=== PATIENT | female | born 1950 | race Caucasian/White ===

== ENCOUNTER 2024-03-07 12:46 | Inpatient (IN) | payer MEDICARE, SELFPAY ==
[2024-03-07] VITALS (17 sets, daily range): BP systolic 162–221; BP diastolic 56–88; PULSE 84–100; RESP 12–20; TEMP 36.3–36.8; O2SAT 92–97; BMI 35.2
--- NOTE | ~2024-03-07 | US_ITS ---
US abdomen limited INDICATION: PROCEDURE: Realtime right upper abdominal ultrasound. COMPARISON: No prior studies for comparison. FINDINGS: The pancreas is normal without focal mass or pancreatic ductal dilation. Liver echotexture is normal without focal mass or intrahepatic biliary dilatation. There is normal directional flow i n the portal vein. The gallbladder is normal without stones, gallbladder wall thickening or pericholecystic fluid. Comm on bile duct measures 4 mm. No sonographic Shaw's sign. IMPRESSION: 1: Normal limited abdominal ultrasound. Reviewed, dictated and finalized at location B.
--- NOTE | ~2024-03-07 | CT_ITS ---
EXAMINATION: CT brain wo con DATE: 03/07/2024 14:20 INDICATION: Syncope. Seizure. TECHNIQUE: Computed tomography (CT) of the head was performed without intravenous contrast. The mA wa s adjusted according to patient size. Iterative reconstruction technique was employed. The dose-lengt h product was 605.33 mGy-cm. COMPARISON: None FINDINGS: There are scattered areas of low attenuation in the cerebral white matter. There is no intr acranial hemorrhage, acute infarction, or abnormal intracranial mass lesion. The ventricles are john l in size. There is mild mucosal thickening in the paranasal sinuses. The mastoid air cells are john l. IMPRESSION: 1. Moderate nonspecific cerebral white matter disease, which likely represents chronic small vessel i schemic disease. Reviewed, dictated and finalized at location E. IMPRESSION: 1. Moderate nonspecific cerebral white matter disease, which likely represents chronic small vessel ischemic disease.
--- NOTE | ~2024-03-07 | XR_ITS ---
EXAMINATION: XR chest 2V 03/07/2024 13:30 INDICATION: Syncope PROCEDURE: 2 view chest COMPARISON: No prior studies for comparison. FINDINGS: The lungs are clear. The cardiomediastinal silhouette is within normal limits. There are no pleural effusions. There is no pneumothorax suspected. IMPRESSION: 1: NO ACUTE CARDIOPULMONARY DISEASE. Reviewed, dictated and finalized at location A.
--- NOTE | ~2024-03-07 | CT_ITS ---
EXAMINATION: CTA chest PE abdomen pel DATE: 03/07/2024 14:20 INDICATION: Shortness of breath. Elevated lipase. TECHNIQUE: Computed tomography angiography (CTA) of the chest was performed with 100 mL Omnipaque-350 intravenous contrast timed to evaluate the pulmonary arteries. Coronal maximum intensity projection 3D-reconstructions were created by the technologist. Computed tomography (CT) of the abdomen and pelv is was performed with intravenous contrast. Automated exposure control and iterative reconstruction t echnique were employed. The dose-length product was 1939.51 mGy-cm. COMPARISON: None. FINDINGS: CTA chest: The lungs demonstrate mild atelectasis. There is smooth septal thickening in the lungs, co nsistent with mild pulmonary edema. There is mild emphysema. No pleural effusion. The heart size is n ormal. There are coronary artery calcifications. No pericardial effusion. There is no pulmonary embol us. There is mild thoracic spondylosis. CT abdomen and pelvis: The liver demonstrates a nodular surface contour, consistent with cirrhosis. T here is a 7 mm cyst in the liver. 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 The spl een is normal in size. There is fat stranding around the pancreas, consistent with acute interstitial pancreatitis. The adrenal glands and kidneys are normal. There is diverticulosis of the colon withou t evidence of diverticulitis. The appendix is not visualized. There are no dilated loops of bowel. Th ere is calcified atherosclerosis of the aorta and many of the other arteries. There are no pathologic ally enlarged lymph nodes. There is no free intraperitoneal fluid. There is mild lumbar spondylosis. IMPRESSION: 1. No pulmonary embolus. Sensitivity is mildly decreased by motion artifact. 2. Mild pulmonary edema. 3. Cirrhosis of the liver with portal venous hypertension. 4. Mild findings of acute interstitial pancreatitis. Reviewed, dictated and finalized at location E.
--- NOTE | 2024-03-07 12:55 | ECG_ITS ---
SEE SCANNED COPY FOR CONFIRMED REPORT MTDD
[2024-03-07 13:07] LABS: Basophils Absolute Auto 0.1 K/mm3 (0.0-0.1); Basophils Percent Auto 0.8 % (0.2-1.2); Eosinophils Absolute Auto 0.3 K/mm3 (0-0.3); Eosinophils Percent Auto 3.9 % (0-4.4); Hematocrit 37.8 % (37.0-47.0); Hemoglobin 12.6 g/dL (12.0-15.0); Immature Granulocyte Absolute 0.03 K/mm3 (0.00-0.031); Immature Granulocyte Percent A 0.4 % (0-0.5); Lymphocytes Absolute Auto 3.06 K/mm3 (0.9-3.2); Lymphocytes Percent Auto 38.6 % (18.3-44.2); Mean Corpuscular HGB Conc 33.3 g/dl (32-36); Mean Corpuscular Hemoglobin 33.2 pg (26-34); Mean Corpuscular Volume 99.7 fl (80-100); Mean Platelet Volume 10.5 fl (7.4-10.4); Monocytes Absolute Auto 1.1 K/mm3 (0.1-0.6); Monocytes Percent Auto 13.5 % (2.6-8.5); Neutrophils Absolute Auto 3.4 K/mm3 (1.3-6.7); Neutrophils Percent Auto 42.8 % (45.5-73.1); Platelet Count Result 173 k/mm3 (150-375); Red Blood Count 3.79 M/mm3 (4.2-5.4); Red Cell Distribution Width 12.6 % (11.5-14.5); White Blood Count 7.9 K/mm3 (4.5-10.0)
[2024-03-07 13:16] LABS: Alanine Aminotransferase 20 U/L (6-35); Albumin Level 4.1 g/dL (3.5-5.1); Alkaline Phosphatase 66 U/L (38-126); Anion Gap 9 mmol/L (4-12); Aspartate Amino Transferase 42 U/L (14-36); Bilirubin,Total 0.9 mg/dL (0.2-1.3); Blood Urea Nitrogen 10 mg/dL (7-17); Calcium 9.3 mg/dL (8.4-10.2); Carbon Dioxide 23 mmol/L (22-30); Chloride 108 mmol/L (98-107); Estimated CRCL calculation 54 ml/min; Estimated Glomerular Filt Rate > 60; Glucose 129 mg/dL (65-110); Lipase 744 U/L (23-300); Potassium 3.7 mmol/L (3.4-5.0); Sodium 140 mmol/L (137-145)
[2024-03-07 13:22] LABS: INR 1.1; Prothrombin Time 14.9 Seconds (11.1-14.7)
[2024-03-07 13:23] LABS: Partial Thromboplastin Time 29.3 Seconds (22.3-36.8)
--- NOTE | 2024-03-07 13:45 | ECG_ITS ---
SEE SCANNED COPY FOR CONFIRMED REPORT MTDD
--- NOTE | 2024-03-07 14:47 | ED.GENADULT ---
HPI - General Adult General Chief complaint: Syncope Stated complaint: syncopal episode Time Seen by Provider: 03/07/24 12:58 History of Present Illness HPI narrative: Erlinda Toth is a 73 y/o female with PMHx of DM who presents today via EMS from home after a syncope episode. Witnessed by family pt was sitting on the couch listening to her daughter in law and she suddenly had eyes rolled back / clenched fists / mild shaking of upper extremities and was out for about 30 seconds. She then came to and slowly became oriented X 4 again. Patient arrives here- states she feels a little foggy in the head, but denies having any chest pain/ SOB/ fever/chills/ She states otherwise she has been feeling well but has been taking OTC ced seltzer that she states is for her allergies that have been acting up. Related Data Allergies Allergy/AdvReac Type Severity Reaction Status Date / Time No Known Allergies Allergy Verified 03/07/24 19:50 Review of Systems Review of Systems: CONSTITUTIONAL: Denies fever, chills, or sweats. EYES: Denies visual changes, redness, or discharge. ENT: Reports some seasonal allergy symptoms CARDIOVASCULAR: Denies chest pain, palpitations, or edema. RESPIRATORY: Denies cough or dyspnea. GASTROINTESTINAL: Denies abdominal pain, nausea, vomiting, or diarrhea. GENITOURINARY: Denies dysuria or hematuria. SKIN: Denies rash or itching. MUSCULOSKELETAL: Denies back pain, joint pain, or myalgia. NEUROLOGIC: Denies headache, numbness, dizziness, or weakness. PSYCHIATRIC: Denies anxiety or depression. Exam Narrative: GENERAL: Well-appearing, well-nourished, and in no acute distress. HEAD: Normocephalic, atraumatic. EYES: PERRLA and EOMI. ENT: Nares clear, no rhinorrhea or epistaxis. Mucous membranes moist. Oropharynx without tonsillar hypertrophy exudate or other lesions. Bilateral TMs pearly blank nonbulging NECK: Supple. No adenopathy or masses. No carotid bruits or JVD CHEST: Clear to auscultation. No respiratory distress. No wheezes rales or rhonchi HEART: Regular rate and rhythm. No murmur heard. Normal peripheral pulses. ABDOMEN: Soft, nontender, nondistended, normal active bowel sounds. EXTREMITIES: Normal range of motion. No edema. SKIN: Warm, dry, no rash. NEURO: No focal deficits. Alert and oriented x3. PSYCH: Normal mood and affect. Course Vital Signs Vital signs: Vital Signs Pulse Rate 100 03/07/24 12:55 Respiratory Rate 18 03/07/24 12:55 Blood Pressure 221/81 H 03/07/24 12:55 Pulse Oximetry 93 03/07/24 12:55 Temperature 36.6 C 03/07/24 18:17 Pulse Rate 84 03/07/24 19:29 Respiratory Rate 17 03/07/24 19:29 Blood Pressure 193/81 H 03/07/24 19:29 Pulse Oximetry 97 03/07/24 19:29 Oxygen Delivery Room Air 03/07/24 13:04 Medical Decision Making MDM Narrative Medical decision making narrative: 73 y/o female who presents today for syncope witnessed by family and was out for about 30 seconds. On exam pt is alert and oriented X 4 no focal weakness/ paraesthesia noted on exam Denies chest pain/ SOB/ abdominal pain/ headache/ SOB/ Reports she has been eating and drinking well/ no nausea/vomiting / no recent illness fever/chills Concern for: Pulmonary embolism/ TIA/ Seizure/ Cardiac Ischemia/ Cardiac arrhythmia Plan to check Cardiac labs/ EKG/ Trop/ CT brain/ CT PE protocol and CT abdomen pelvis with her elevated Lipase CBC - Hemodynamically stable - no Leukocytosis CMP - Glucose 129- known DM / AST - 42 Lipase- 744 Trop 1 - 2.22 EKG 1 1252- Sinus rhythm Moderate ST Depression Lead II, Avf EKG 2 1352- Sinus rhythm minimal ST depression lead II, aVF also noted to have flattening T waves in V2, V3 Trop 2 -2.47 EKG 3 - sinus rhythm Pro BNP - 310 Called and talked with Cardiology Dr. Huertas who will consult and at this time not as concerned for ACS in the setting of the syncope Discussed admission with Hospitalist Katy who accepts admission
--- NOTE | 2024-03-07 15:46 | ECG_ITS ---
SEE SCANNED COPY FOR CONFIRMED REPORT MTDD
[2024-03-07 16:09] LABS: NT Pro B Type Natriuretic Pept 310 pg/mL (19.9-100)
[2024-03-07 16:50] LABS: Ethanol < 10 mg/dL (<10)
--- NOTE | 2024-03-07 19:03 | PM.CNCAR ---
Assessment and Plan Assessment and plan (1) Syncope: Code(s): R55 - Syncope and collapse Status: Acute Assessment and Plan: Differential includes ventricular arrhythmias, heart block, orthostatic, stroke, seizures, other. Monitor on telemetry. Obtain echo in AM. (2) Elevated troponin: Code(s): R79.89 - Other specified abnormal findings of blood chemistry Status: Acute Assessment and Plan: No symptoms to suggest ACS. Other possible causes include differential for #1, and pancreatitis. Troponin 2.2, then 2.4. Serial troponin to peak. (3) Diabetes: Code(s): E11.9 - Type 2 diabetes mellitus without complications Status: Acute Assessment and Plan: Managed by hospitalist. (4) Pancreatitis: Code(s): K85.90 - Acute pancreatitis without necrosis or infection, unspecified Status: Acute Assessment and Plan: Managed by hospitalist. History of Present Illness History of Present Illness Consult date/time: 03/07/24 19:03 Reason For Visit: Syncope Narrative: 73 yr old woman presents to ER with syncopal episode. She has a history of DM, remote smoking and family history of CAD with her father with CABG. Reports she was sitting on couch talking to her [id number] when suddenly her eyes rolled back, she had clenched fists and arms shaking, and was out for 35 seconds. She regained consciousness and was confused for a minute. Normally she can walk several blocks without any problems. She has rare palpitations especially with caffeine intake. Denies chest pain, sob, orthopnea, PND, edema, dizziness. Review of Systems Review of Systems: All systems reviewed & are unremarkable except as noted in HPI and below Constitutional: Constitutional: Reports as per HPI, Denies chills and Denies fever(s) Cardiovascular: Cardiovascular: Reports as per HPI, Denies chest pain, Reports irregular heart rhythm and Denies leg edema Respiratory: Respiratory: Reports as per HPI and Denies dyspnea Gastrointestinal: Gastrointestinal: Reports as per HPI and Denies abdominal pain Genitourinary: Genitourinary: Reports as per HPI and Denies dysuria Musculoskeletal: Musculoskeletal: Reports as per HPI and Reports back pain Neurologic: Reports as per HPI, Denies dizziness and Reports syncope Meds Home Medications and Allergies Allergies Allergy/AdvReac Type Severity Reaction Status Date / Time No Known Allergies Allergy Unverified 10/26/16 20:23 Vital Signs Vital Signs - 24 hr 03/07/24 13:04 03/07/24 12:55 03/07/24 13:42 Temperature 98.3 F Pulse Rate 92 100 100 Respiratory Rate 16 18 20 Blood Pressure 202/82 H 221/81 H 174/82 H Pulse Oximetry 92 93 96 Oxygen Delivery Room Air 03/07/24 13:45 03/07/24 14:00 03/07/24 14:30 Temperature 98.0 F Pulse Rate 99 96 97 Respiratory Rate 18 15 16 Blood Pressure 187/83 H 192/88 H 186/87 H Pulse Oximetry 96 94 Oxygen Delivery 03/07/24 15:00 03/07/24 16:00 03/07/24 17:00 Temperature 97.9 F 97.9 F 97.8 F Pulse Rate 94 89 90 Respiratory Rate 12 16 15 Blood Pressure 196/84 H 188/87 H 195/85 H Pulse Oximetry 96 94 Oxygen Delivery 03/07/24 17:31 03/07/24 18:17 Temperature 97.8 F Pulse Rate 91 85 Respiratory Rate 17 16 Blood Pressure 187/87 H 194/86 H Pulse Oximetry 95 Oxygen Delivery Exam Const: General: cooperative, healthy appearing and comfortable Resp: Auscultation: clear to auscultation bilaterally, no crackles, no rales, no rhonchi and no wheezes Cardio: Rate: regular rate Rhythm: regular rhythm Heart sounds: no murmurs Peripheral pulses: dorsalis pedis present GI: GI Palp: No abdominal tenderness and Yes Soft to palpation Neuro: General: oriented to person, oriented to place and oriented to time Extrem: Right lower extremity: no edema Left lower extremity: no edema Results Labs and Meds 03/07/24 12:59 03/07/24 12:59 Lab results: Ca
--- NOTE | 2024-03-07 19:35 | ADMGEN ---
This patient, Erlinda Toth, was admitted to IMU Room 203-01. Patient/family oriented to hospital policies and general routines including ID bracelet, bed and alarms, visiting hours, pain management, procedures, bathroom and other care routines, personal items, smoking policy, room service/diet, and visiting hours. Information on how to activate the Rapid Response Team has been discussed. Patient/Family are encouraged to report perceived risks to care and to ask questions if they do not understand what they are told or what they should do.
--- NOTE | 2024-03-07 20:19 | PM.IMHP ---
H&P: HPI History of Present Illness Date/Time: 03/07/24 20:19 Chief Complaint: SYNCOPE Narrative: THIS IS A 73-YEAR-OLD FEMALE WITH PAST MEDICAL HISTORY SIGNIFICANT FOR TYPE DIABETES MELLITUS, PATIENT WAS BROUGHT TO THE EMERGENCY ROOM AFTER HAVING SYNCOPAL EPISODE AT HOME PATIENT STATES THAT SHE HAD NO PRODROMES, DENIES ANY LIGHTHEADEDNESS, VISION CHANGES, HEADACHES, PALPITATIONS, CHEST PAIN, SHORTNESS OF BREATH, NO INCONTINENCE OF URINE OR STOOL. PATIENT HAS BEEN IN HER USUAL STATE OF HEALTH PRIOR TO THIS PRELIMINARY WORKUP HAS BEEN ESSENTIALLY SIGNIFICANT FOR ELEVATED TROPONIN. PATIENT HAS BEEN PLACE IN OBSERVATION FOR FURTHER EVALUATION MANAGEMENT EXAMINATION: XR chest 2V 03/07/2024 13:30 INDICATION: Syncope PROCEDURE:? 2 view chest COMPARISON: No prior studies for comparison. FINDINGS: The lungs are clear.? The cardiomediastinal silhouette is within normal limits.? There are no pleural effusions.? There is no pneumothorax suspected.? IMPRESSION: 1:? NO ACUTE CARDIOPULMONARY DISEASE. EXAMINATION: CT brain wo con DATE: 03/07/2024 14:20 INDICATION: Syncope. Seizure. TECHNIQUE: Computed tomography (CT) of the head was performed without intravenous contrast. The mA was adjusted according to patient size. Iterative reconstruction technique was employed. The dose-length product was 605.33 mGy-cm. COMPARISON: None FINDINGS: There are scattered areas of low attenuation in the cerebral white matter. There is no intracranial hemorrhage, acute infarction, or abnormal intracranial mass lesion. The ventricles are normal in size. There is mild mucosal thickening in the paranasal sinuses. The mastoid air cells are normal. IMPRESSION: 1. Moderate nonspecific cerebral white matter disease, which likely represents chronic small vessel ischemic disease. EXAMINATION: CTA chest PE abdomen pel DATE: 03/07/2024 14:20 INDICATION: Shortness of breath. Elevated lipase. TECHNIQUE: Computed tomography angiography (CTA) of the chest was performed with 100 mL Omnipaque-350 intravenous contrast timed to evaluate the pulmonary arteries. Coronal maximum intensity projection 3D-reconstructions were created by the technologist. Computed tomography (CT) of the abdomen and pelvis was performed with intravenous contrast. Automated exposure control and iterative reconstruction technique were employed. The dose-length product was 1939.51 mGy-cm. COMPARISON: None. FINDINGS: CTA chest: The lungs demonstrate mild atelectasis. There is smooth septal thickening in the lungs, consistent with mild pulmonary edema. There is mild emphysema. No pleural effusion. The heart size is normal. There are coronary artery calcifications. No pericardial effusion. There is no pulmonary embolus. There is mild thoracic spondylosis. CT abdomen and pelvis: The liver demonstrates a nodular surface contour, consistent with cirrhosis. There is a 7 mm cyst in the liver. 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 The spleen is normal in size. There is fat stranding around the pancreas, consistent with acute interstitial pancreatitis. The adrenal glands and kidneys are normal. There is diverticulosis of the colon without evidence of diverticulitis. The appendix is not visualized. There are no dilated loops of bowel. There is calcified atherosclerosis of the aorta and many of the other arteries. There are no pathologically enlarged lymph nodes. There is no free intraperitoneal fluid. There is mild lumbar spondylosis. IMPRESSION: 1. No pulmonary embolus. Sensitivity is mildly decreased by motion artifact. 2. Mild pulmonary edema. 3. Cirrhosis of the liver with portal venous hypertension. 4. Mild findings of acute interstitial pancreatitis. Review of Systems Review of Systems: SYNCOPAL EPISODE Constitutional: Constitutional: Denies body ache(s), Denies chills, Denies fatigue, Denies fever(s), Denies frequent falls, Denies malaise and Denies weakness
--- NOTE | 2024-03-07 21:57 | PC.NURSE ---
Dr. Ascencio notified of patient's elevated blood pressures and recent troponin level. MD responded with new order for hydralazine 10mg IV Push.
[2024-03-07] MEDS: hydrALAZINE HCL 20 MG/ML VIAL 10 MG IV PUSH (22:17)
[2024-03-08] VITALS (13 sets, daily range): BP systolic 150–184; BP diastolic 45–68; PULSE 72–95; RESP 15–20; TEMP 36.4–37.4; O2SAT 93–95
--- NOTE | 2024-03-08 | ECHO_ITS ---
Patient Info Name: Erlinda Toth Age: 73 years : 1950 Gender: Female Ht: 60 in Wt: 188 lbs BSA: 1.94 m2 HR: 87 bpm BP: 150 / 56 mmHg Technical Quality: Fair Exam Date: 03/08/2024 7:59 AM Exam Location: Echo Lab Patient Status: Inpatient Admit Date: 03/07/2024 Staff Ordering Physician: Ravi Huertas DO Child Life Assistant: Damián Tate RDCS Attending Provider: Uzair Mclaughlin MD Referring Physician: Aleksandar FREITAS; Exam Type: CA echo doppler color flow Study Info Indications R55 - Syncope and collapse - Elevated Trops Complete two-dimensional, color flow and Doppler transthoracic echocardiogram is performed. Summary 1. Complete two-dimensional, color flow and Doppler transthoracic echocardiogram is performed. 2. Left ventricular chamber dimension is normal. 3. Ventricular septum is sigmoid shaped measured at 1.3 cm. No resting LVOT obstruction. 4. Mid to apical anterior wall is hypokinetic. 5. There is mild concentric increased left ventricular wall thickness. 6. Left ventricular systolic function is hyperdynamic, estimated at >70%. 7. The left ventricular diastolic function is grade I diastolic dysfunction. 8. E/e' 11 is mildly elevated. 9. Left atrial chamber dimension is mildly enlarged. 10. There is mild aortic valve sclerosis. 11. There is trace tricuspid valve regurgitation. 12. No pulmonary hypertension, estimated pulmonary arterial systolic pressure is 30 mmHg. Left Ventricle Mid to apical anterior wall is hypokinetic. Ventricular septum is sigmoid shaped measured at 1.3 cm. No resting LVOT obstruction. Left ventricular chamber dimension is normal. Left ventricular systolic function is hyperdynamic, estimated at >70%. There is mild concentric increased left ventricular wall thickness. The left ventricular diastolic function is grade I diastolic dysfunction. E/e' 11 is mildly elevated. Right Ventricle Right ventricular systolic function is normal and with normal TAPSE 2.1 cm. Right ventricular chamber dimension is normal. Left Atria Left atrial chamber dimension is mildly enlarged. Right Atria Right atrial chamber dimension is normal. Aortic Valve The aortic valve is trileaflet. There is mild aortic valve sclerosis. There is no aortic valve stenosis. There is no aortic valve regurgitation. Pulmonic Valve There is no pulmonic regurgitation. Mitral Valve There is no mitral valve stenosis. There is no mitral valve regurgitation. Tricuspid Valve There is trace tricuspid valve regurgitation. No pulmonary hypertension, estimated pulmonary arterial systolic pressure is 30 mmHg. Pericardium/Pleural There is no pericardial effusion. Inferior Vena Cava Normal inferior vena cava with >50% collapse upon inspiration consistent with normal right atrial pressure, 5 mmHg. Aorta The aortic root size at the sinus of Valsalva is normal. Left Ventricular Outflow Tract Name Value Normal LVOT 2D LVOT Diameter 1.9 cm LVOT Doppler LVOT Peak Gradient 6 mmHg LVOT Mean Gradient 3 mmHg LVOT VTI 23 cm LVOT VTI/AV VTI Ratio 0.8 LVOT Stroke Volume
--- NOTE | 2024-03-08 06:26 | ECG_ITS ---
SEE SCANNED COPY FOR CONFIRMED REPORT MTDD
[2024-03-08 07:06] LABS: Cholesterol 149 mg/dL (0-200); HDL Direct 44 mg/dL; Triglycerides 110 mg/dL (<150)
[2024-03-08 07:17] LABS: LDL Cholesterol Direct 89 mg/dL
--- NOTE | 2024-03-08 07:34 | PM.PNCARD ---
Progress Note: A&P Assessment and Plan (1) Syncope: Qualifiers: Syncope type: unspecified Qualified Code(s): R55 - Syncope and collapse Code(s): R55 - Syncope and collapse Status: Acute Assessment and Plan: Differential includes ventricular arrhythmias, heart block, orthostatic, ACS, stroke, seizures, other. Monitor on telemetry. Obtain echo today. In light of rising troponin in a diabetic with possibly atypical symptom for CAD of syncope, discuss LHC and she is interested. Risks/benefits/alternative to LHC discussed and she is agreeable. Will consult [facility] [place] for it. Keep NPO. Start aspirin, Metoprolol, Losartan. If has CAD will start statin given cirrhosis of liver. (2) Elevated troponin: Code(s): R79.89 - Other specified abnormal findings of blood chemistry Status: Acute Assessment and Plan: No typical symptoms for ACS, but syncope in a diabetic. Other possible causes include differential for #1, and pancreatitis. Troponin 2.2, then 2.4, then 2.9. Serial troponin to peak. 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 (4) Pancreatitis: Qualifiers: Acute pancreatitis complication: unspecified Chronicity: acute Pancreatitis type: unspecified pancreatitis type Qualified Code(s): K85.90 - Acute pancreatitis without necrosis or infection, unspecified Code(s): K85.90 - Acute pancreatitis without necrosis or infection, unspecified Status: Acute Assessment and Plan: Mild and asymptomatic. Managed by hospitalist. (5) Hypertension: Code(s): I10 - Essential (primary) hypertension Status: Acute Assessment and Plan: High. Start Metoprolol and Losartan. Subjective Date/time seen: 03/08/24 07:34 Interval history: No chest pain or sob. Exam Const: General: cooperative, healthy appearing and comfortable Orientation/consciousness: oriented to person, oriented to place and oriented to time Resp: Auscultation: clear to auscultation bilaterally, no crackles, no rales, no rhonchi and no wheezes Cardio: Rate: regular rate Rhythm: regular rhythm Heart sounds: no murmurs Peripheral pulses: dorsalis pedis present Neuro: General: oriented to person, oriented to place and oriented to time Extrem: Right lower extremity: no edema Left lower extremity: no edema Objective Data Vital Signs Vital Signs: Vital Signs - 24 hr 03/07/24 13:04 03/07/24 12:55 03/07/24 13:42 Temperature 98.3 F Pulse Rate 92 100 100 Respiratory Rate 16 18 20 Blood Pressure 202/82 H 221/81 H 174/82 H Pulse Oximetry 92 93 96 Oxygen Delivery Room Air 03/07/24 13:45 03/07/24 14:00 03/07/24 14:30 Temperature 98.0 F Pulse Rate 99 96 97 Respiratory Rate 18 15 16 Blood Pressure 187/83 H 192/88 H 186/87 H Pulse Oximetry 96 94 Oxygen Delivery 03/07/24 15:00 03/07/24 16:00 03/07/24 17:00 Temperature 97.9 F 97.9 F 97.8 F Pulse Rate 94 89 90 Respiratory Rate 12 16 15 Blood Pressure 196/84 H 188/87 H 195/85 H Pulse Oximetry 96 94 Oxygen Delivery 03/07/24 17:31 03/07/24 18:17 03/07/24 19:29 Temperature 97.8 F Pulse Rate 91 85 84 Respiratory Rate 17 16 17 Blood Pressure 187/87 H 194/86 H 193/81 H Pulse Oximetry 95 97 Oxygen Delivery 03/07/24 19:54 03/07/24 20:00 03/07/24 20:00 Temperature 97.4 F L Pulse Rate 94 85 Respiratory Rate 18 Blood Pressure 162/77 H Pulse Oximetry 96 Oxygen Delivery Room Air 03/07/24 22:00 03/07/24 23:21 03/08/24 00:00 Temperature 97.4 F L Pulse Rate 94 94 92 Respiratory Rate 18 Blood Pressure 167/56 H Pulse
--- NOTE | 2024-03-08 08:20 | WPDMODSED ---
Moderate Sedation Note-Pt Data Patient Data Diagnosis: Syncope Elevated troponin Diabetes Obesity Present Complaint: No complaints this morning Procedure to be performed/Plan: Left heart catheterization Allergies Allergy/AdvReac Type Severity Reaction Status Date / Time No Known Allergies Allergy Verified 03/07/24 19:50 Home Medications Medication Instructions Recorded Confirmed Type Vitamin D3 25 mcg PO DAILY 03/07/24 03/07/24 History blood sugar diagnostic (OneTouch 03/07/24 03/07/24 History Verio test strips) sitagliptin phosphate 50 50 - 500 tablet PO DAILY 03/07/24 03/07/24 History mg-metformin 500 mg tablet (Ru) Current Medications: Active Medications Aspirin (Aspirin 81 Mg Enteric Tablet) 81 mg PO QAM EDE Losartan Potassium (Losartan Potassium 25 Mg Tablet) 25 mg PO DAILY EDE Metoprolol Tartrate (Metoprolol Tartrate 25 Mg Tablet) 25 mg PO Q12HR EDE Perflutren Lipid Microsphere (Perflutren Lipid Microspheres 1.5 Ml Vial Diluted To 10 Ml Total Volume) 0 ml IV PUSH ONCE PRN; Protocol PRN Reason: adequate visualization Stop: 03/10/24 19:13 Sedation/Anesthesia: No previous sedation/anesthesia problems (including family history). [facility] Family History Family History (Updated 03/07/24 @ 20:13 by Luiza Hand RN) Mother Colon cancer Father Acute myocardial infarction Social History Social History Smoking packs per day: 1 Smoking cigarettes per day: 20.0 Smoking status: Former smoker Tobacco type: cigarettes Second hand tobacco smoke exposure: No Smoking end date: 03/07/94 Alcohol intake: former Substance use: never Do You Feel Safe in your Home?: Yes Lack of Transportation: No Lack of Food: Never True Current Housing: I Have Housing Concerned About Future Housing: No Difficulty Paying Gas/Electric Bills: No Difficulty Paying for Meds: No Currently Unemployed: No Education: Decline to Answer Difficulty w/ Childcare or Family Care: No Spiritual care concerns: No Mod Sed Physical Exam Physical Exam Pre Procedural Exam: Normal: Neck, Throat, Airway, Lungs, Heart Rate, Heart Rhythm, Neuro Exam and Extremities and Variation: Appearance (Pleasant obese lady no apparent distress) and Heart Size (PMI not palpable) Hours since solid foods: 12 Hours since liquid intake: 12 Mallampati Classification: class III Internal Medicine - PN: Obj Da Vital Signs Vital Signs: Vital Signs - 24 hr 03/07/24 13:04 03/07/24 12:55 03/07/24 13:42 Temperature 36.8 C Pulse Rate 92 100 100 Respiratory Rate 16 18 20 Blood Pressure 202/82 H 221/81 H 174/82 H Pulse Oximetry 92 93 96 Oxygen Delivery Room Air 03/07/24 13:45 03/07/24 14:00 03/07/24 14:30 Temperature 36.7 C Pulse Rate 99 96 97 Respiratory Rate 18 15 16 Blood Pressure 187/83 H 192/88 H 186/87 H Pulse Oximetry 96 94 Oxygen Delivery 03/07/24 15:00 03/07/24 16:00 03/07/24 17:00 Temperature 36.6 C 36.6 C 36.6 C Pulse Rate 94 89 90 Respiratory Rate 12 16 15 Blood Pressure 196/84 H 188/87 H 195/85 H Pulse Oximetry 96 94 Oxygen Delivery 03/07/24 17:31 03/07/24 18:17 03/07/24 19:29 Temperature 36.6 C Pulse Rate 91 85 84 Respiratory Rate 17 16 17 Blood Pressure 187/87 H 194/86 H 193/81 H Pulse Oximetry 95 97 Oxygen Delivery 03/07/24 19:54 03/07/24 20:00 03/07/24 20:00 Temperature 36.3 C L Pulse Rate 94 85 Respiratory Rate 18 Blood Pressure 162/77 H Pulse Oximetry 96 Oxygen Delivery Room Air 03/07/24 22:00 03/07/24 23:21 03/08/24 00:00 Temperature 36.3 C L Pulse Rate 94 94 92 Respiratory Rate 18 Blood Pressure 167/56 H Pulse Oximetry 97 Oxygen Delivery 03/08/24 00:00 03/08/24 02:00 03/08/24 04:20 Temperature 37.3 C Pulse Rate 90 92 Respiratory Rate 18 Blood Pressure 150/56 H Pulse Oximetry 94 Oxygen Delivery Room Air 03/08/24 04:00 04
[2024-03-08] MEDS: LOSARTAN POTASSIUM 25 MG TABLET PO (10:07)
[2024-03-08] MEDS: ASPIRIN 81 MG ENTERIC TABLET PO (10:08)
[2024-03-08] MEDS: METOPROLOL TARTRATE 25 MG TABLET PO (10:08)
--- NOTE | 2024-03-08 13:50 | WPDCARDPROC ---
Cardiac Cath Procedure Note Date of procedure:: 03/08/24 Performing physician:: Kenneth Ramirez MD Indication:: syncope, elevated troponin Brief clinical history:: this is a 73-year-old woman without previous cardiac history she is diabetic and has dyslipidemia. Following admission she had a moderate troponin rise prompting recommendation for angiography. Procedure Procedure performed:: Left ventriculography coronary angiography placement of intra-aortic balloon pump Sedation/Medication given:: fentanyl 50 mg Versed 2 mg case start time 13 17 p.m. case end time 1:43 p.m. sedation provided by Inge Romero RN, trained observer Access site:: right femoral artery Estimated blood loss:: 25 cc Procedure note:: patient was brought to the cardiac catheterization lab postabsorptive state where the right femoral triangle was prepared and draped in the normal fashion. Anesthesia was provided with 1% lidocaine infiltrated locally. Using modified Seldinger technique a 5 Thai sheath was placed into the right femoral artery after this left heart catheterization was carried out. A 5 Thai angled pigtail catheter to measure left-sided hemodynamics and to inject the left ventriculogram in the FOSTER projection after this I used a standard 5 Thai JR4 catheter to engage and inject the right coronary artery. A lastly a standard 5 Thai FL 4 catheter was placed into the aortic root which would not satisfactorily engage left main an FL 3.5 was used to engage the left main and performed angiography in multiple projections. the cineangiograms were then reviewed and the decision made to place an intra-aortic balloon pump because of critical left main disease. The guidewire was used in the central aorta to change the procedural sheath to the 8 Thai balloon pump sheath. Following this the intra-aortic balloon pump was advanced over the guidewire under fluoroscopic guidance into the distal thoracic aorta just below the takeoff of the left subclavian artery. The a balloon pump was sutured into his position. The device was connected to a pumping and under fluoroscopic visualization appropriate position and augmentation was a demonstrated. She was given 5000 units of IV heparin as a bolus at the time the Balloon pump catheter was placed into the ascending aorta. the balloon pump sheath was sutured into position as was the 8 Thai sheath and following this she was taken to the ICU for post cath recovery. Findings:: Hemodynamics: Central aortic pressure is 150 over 58 left ventricle 150/0 end-diastolic pressure is 16 there was no gradient on pullback across the aortic valve. Left ventricle: The LV is normal in size all segments contract vigorously the ejection fraction is visually estimated to be 70-75%. The left main coronary artery is moderate caliber there is some distal calcification in the FOSTER caudal projection there is a subtotal 95% irregular stenosis which is complex in the distal left main. Left anterior descending is a large caliber artery X extending down to the apex. The LAD has high-grade proximal 90% stenosis extending from the distal left main. A distal to this the LAD is free of significant disease. The circumflex is a large caliber vessel giving rise to the marginal branches and a posterior branch. There is 95-99% stenosis in the ostium of the circumflex as it takes off from the left main. The remainder of the circumflex has minimal luminal irregularities the right coronary is a large caliber vessel which is dominant to the posterior circulation. The right coronary has minimal luminal irregularities but no flow-limiting disease is identified. Conclusion:: 1. Right coronary dominant circulation with critical coronary disease including high-grade distal left main stenosis extending into the ostium of the circumflex as well as the LAD. 2. Vigorous, somewhat hyperdynamic appearing left ventricular
--- NOTE | 2024-03-08 14:05 | PC.NURSE ---
pt to go to ICU post cardiac cath- report given to Sawyer HAUSER- belongings sent to ICU
--- NOTE | 2024-03-08 14:24 | PC.NURSE ---
This patient, Erlinda Toth, was received from forestry farm laborer on 03/08/24 at 1420. Patient/family oriented to unit policies and routines
--- NOTE | 2024-03-08 14:40 | WPDCNINT ---
Assessment and Plan Assessment and plan (1) Syncope: Qualifiers: Syncope type: unspecified Qualified Code(s): R55 - Syncope and collapse Code(s): R55 - Syncope and collapse Status: Acute Assessment and Plan: Patient with syncope home with elevated troponins -status post cardiac catheterization which showed left main disease with LAD high-grade proximal 90% stenosis extending from the distal left main, there is 95-99% stenosis in the ostium of the circumflex as it takes a from the left main. -intra-aortic balloon pump was inserted given the critical nature of patient's left main anatomy. Patient will be transferred to high level of care for this cardiothoracic surgery consultation for possible surgical myocardial revascularization -Dr. Huertas is the music coordinator who will coordinate the transfer of the patient (2) Elevated troponin: Code(s): R79.89 - Other specified abnormal findings of blood chemistry Status: Acute Assessment and Plan: As above (3) Diabetes: Qualifiers: Diabetes mellitus complication status: without complication Diabetes mellitus remote computer terminal operator insulin use: without remote computer terminal operator use Diabetes mellitus type: type 2 Qualified Code(s): E11.9 - Type 2 diabetes mellitus without complications Code(s): E11.9 - Type 2 diabetes mellitus without complications Status: Acute Assessment and Plan: Accu-Cheks and sliding scale and Plan DVT prophylaxis: Status post cardiac catheterization, on heparin drip for intra-aortic balloon pump Stress ulcer prophylaxis: Not indicated Nutrition: NPO Code Status: Full code Critical Care Time Spent: 44 minutes Due to a high probability of clinically significant, life threatening deterioration, the patient required my highest level of preparedness to intervene emergently and I personally spent this critical care time directly and personally managing the patient. This critical care time included obtaining a history; examining the patient; pulse oximetry; ordering and review of studies; arranging urgent treatment with development of a management plan; evaluation of patient's response to treatment; frequent reassessment; and discussions with other providers. It was exclusive of separately billable procedures and treating other patients and teaching time. Please see Assessment and Plan section and the rest of the note for further information on patient assessment and treatment This dictation may have been done utilizing a voice recognition system. Attempts have been made to correct errors. However, there may be uncorrected grammatical, spelling, and recognitions errors present. Proof Tester Consult Note Consult date: 03/08/24 HPI: Erlinda Toth is a 73 year old female with past medical history of diabetes, family history of coronary artery disease with father having history of CABG presented the ED on 03/07/2024 with complains of syncope, according the records patient was sitting on a cause talking with [id number] when she suddenly the are eyes rolled back she had placed effaced and arms were shaking which lasted about 35 seconds. She regained consciousness and was confused for a minute. She can normally walk several blocks without any problems. Denies any alcohol, tobacco or illicit drug use. Denies any chest pain, shortness of breath, abdominal pain, nausea, vomiting at this time. 03/08/2024: Patient had a cardiac catheterization for elevated troponin and syncopal episode. Was found to have critical disease in the left main coronary artery with 95-99% stenosis in the ostium of the circumflex takes off from the left main. LV ejection fraction estimated to be 7 a 75% of Intra-aortic balloon pump was inserted. Given the focal nature of the left main anatomy sign travel will bolus place, she will be referred to a cardiothoracic surgeon consultation. Patient seen and examined the ICU post cardiac catheterization. Very pleasant p
[2024-03-08] MEDS: HEPARIN SOD/D5W 100 UNITS/ML 25,000 UNITS/250 ML BAG 7 UNITS IV CONT (14:52)
[2024-03-08 15:07] LABS: Partial Thromboplastin Time 160.1 Seconds (22.3-36.8)
[2024-03-08] MEDS: SODIUM CHLORIDE 0.9% IV 1,000 ML 125 ML IV CONT (15:15)
--- NOTE | 2024-03-08 16:12 | PC.NURSE ---
Report given to ANALISA Hdz ([facility]) @ [id number]. Dr. Mancia accepting framing and hanging. Dr. Yao accepting scouring machine operator. Pt will be admitted to ICU-1, family made aware of location and contact number for transferring facility.
--- NOTE | 2024-03-08 16:25 | PM.IMPN ---
Progress Note: A&P Assessment and Plan (1) Syncope: Qualifiers: Syncope type: unspecified Qualified Code(s): R55 - Syncope and collapse Code(s): R55 - Syncope and collapse Status: Acute (2) Elevated troponin: Code(s): R79.89 - Other specified abnormal findings of blood chemistry Status: Acute (3) Pancreatitis: Qualifiers: Acute pancreatitis complication: unspecified Chronicity: acute Pancreatitis type: unspecified pancreatitis type Qualified Code(s): K85.90 - Acute pancreatitis without necrosis or infection, unspecified Code(s): K85.90 - Acute pancreatitis without necrosis or infection, unspecified Status: Acute (4) Diabetes: Qualifiers: Diabetes mellitus complication status: without complication Diabetes mellitus prison insulin use: without tank terminal gauger use Diabetes mellitus type: type 2 Qualified Code(s): E11.9 - Type 2 diabetes mellitus without complications Code(s): E11.9 - Type 2 diabetes mellitus without complications Status: Acute (5) Cirrhosis of liver: Qualifiers: Ascites presence: unspecified Hepatic cirrhosis type: unspecified hepatic cirrhosis Qualified Code(s): K74.60 - Unspecified cirrhosis of liver Code(s): K74.60 - Unspecified cirrhosis of liver Status: Acute Plan This is a 73-year-old female with past medical history significant for type 2 diabetes brought to the ER after having syncopal episode at. No prodromal symptoms. Patient was sitting on the couch listening to her [id number] said to lack clinched fist and mild shaking of upper extremities last about 30 seconds after we see slowly came back to normal state. She felt a little foggy in her head while she was in the ER. ED workup revealed hypertension with systolic 190s to 200 is on arrival. EKG showed some moderate ST depression in lead 2 and AVF troponin came back elevated at 2.22 followed by 2.47 Lipase was elevated as well at 7:44 a.m. Cardiology was consulted CT head was moderate nonspecific cerebral white matter disease which likely represents chronic small vessel ischemic disease. CTA PE protocol showed no PE mild pulmonary edema cirrhosis of liver with portal venous hypertension mild findings of acute interstitial pancreatitis Echocardiogram 03/08/2024: Mid to apical anterior wall hypokinetic grade 1 diastolic dysfunction ventricular septum is sigmoid shape id no LVOT obstruction EF more than 70% Diagnosed with non ST elevation [place] with elevated troponin. Cardiac catheterization is planned Type 2 diabetes on at home. SSI Acute Pancreatitis mild interstitial pancreatitis. Right upper quadrant ultrasound came back normal Hypertension Hyperlipidemia DVT prophylaxis Code status full code Subjective Date/time seen: 03/08/24 16:25 Interval history: No overnight events seen earlier prior to catheterization. Denies any chest pain shortness of breath feeling well plan for catheterization today. Review of Systems Review of Systems: All systems reviewed & are unremarkable except as noted in HPI and below Exam Narrative: General: Pleasant female in no acute distress HEENT:? Pupils are equal and reactive, sclera is clear, dry oral mucosa Neck:? Supple Respiratory:? Clear to auscultation bilaterally, no wheezing adequate air entry Cardiac:? S1-S2 normal, regular rate and rhythm Abdomen:? Soft, nontender, nondistended, normoactive bowel sounds Extremities:? No edema cyanosis or clubbing Neuro:? Patient is awake, alert, oriented x3, nonfocal, able to answer questions appropriately Skin:? Warm and dry Psych:? Normal mentation and affect Objective Data Vital Signs Vital Signs: Vital Signs - 24 hr 03/07/24 17:00 03/07/24 17:31 03/07/24 18:17 Temperature 97.8 F 97.8 F Pulse Rate 90 91 85 Respiratory Rate 15 17 16 Blood Pressure 195/85 H 187/87 H 194/86 H Pulse Oximetry 94 95 Oxygen Delivery 03/07/24 19:
--- NOTE | 2024-03-09 17:47 | PM.TDS ---
Transfer Discharge Sum: Prov Provider Date of admission: 03/07/24 17:10 Primary care physician: Olivier Snyder, MD Admitting clinician: Uzair Mclaughlin MD Consults: 03/07/24 Consult to Physician Routine Comment: Consulting Provider: Ravi Huertas Reason for consultation: Elevated Troponin Has provider been notified: Yes 03/08/24 Consult to Physician Routine Comment: spoke with Noris Luong @[id number](,) Consulting Provider: Noris Luong food beverage server/MD group to consult: HCG Reason for consultation: [facility] Has provider been notified: Yes DS: Admitting Diagnosis Discharge Date 03/08/24 Admitting Diagnosis 03/09/2024 DS: Discharge Diagnosis Discharge Diagnosis (1) Syncope: Qualifiers: Syncope type: unspecified Qualified Code(s): R55 - Syncope and collapse Code(s): R55 - Syncope and collapse Status: Acute (2) Elevated troponin: Code(s): R79.89 - Other specified abnormal findings of blood chemistry Status: Acute (3) Pancreatitis: Qualifiers: Acute pancreatitis complication: unspecified Chronicity: acute Pancreatitis type: unspecified pancreatitis type Qualified Code(s): K85.90 - Acute pancreatitis without necrosis or infection, unspecified Code(s): K85.90 - Acute pancreatitis without necrosis or infection, unspecified Status: Acute (4) Diabetes: Qualifiers: Diabetes mellitus complication status: without complication Diabetes mellitus intermediate card tender insulin use: without fci use Diabetes mellitus type: type 2 Qualified Code(s): E11.9 - Type 2 diabetes mellitus without complications Code(s): E11.9 - Type 2 diabetes mellitus without complications Status: Acute (5) Cirrhosis of liver: Qualifiers: Ascites presence: unspecified Hepatic cirrhosis type: unspecified hepatic cirrhosis Qualified Code(s): K74.60 - Unspecified cirrhosis of liver Code(s): K74.60 - Unspecified cirrhosis of liver Status: Acute Transfer Discharge Sum: Med Medications Active and Home Medications: Home Medications Vitamin D3 25 mcg PO DAILY 03/07/24 [History Confirmed 03/07/24] blood sugar diagnostic (WorldPassKeyTouch Verio test strips) 03/07/24 [History Confirmed 03/07/24] sitagliptin phosphate 50 mg-metformin 500 mg tablet (Janumet) 50 - 500 tablet PO DAILY 03/07/24 [History Confirmed 03/07/24] Transfer Discharge Sum: Hosp Hospital Course Hospital course: Erlinda Toth is a 73 year old female with past medical history significant for type 2 diabetes brought to the ER after having syncopal episode at.? No prodromal symptoms.? Patient was sitting on the couch listening to her [id number] said to lack clinched fist and mild shaking of upper extremities last about 30 seconds after we see slowly came back to normal state.? She felt a little foggy in her head while she was in the ER. ED workup revealed hypertension with systolic 190s to 200 is on arrival. EKG showed some moderate ST depression in lead 2 and AVF troponin came back elevated at 2.22 followed by 2.47 Lipase was elevated as well at 7:44 a.m. Cardiology was consulted CT head was moderate nonspecific cerebral white matter disease which likely represents chronic small vessel ischemic disease. CTA PE protocol showed no PE mild pulmonary edema cirrhosis of liver with portal venous hypertension mild findings of acute interstitial pancreatitis Echocardiogram 03/08/2024:? Mid to apical anterior wall hypokinetic grade 1 diastolic dysfunction ventricular septum is sigmoid shape id no LVOT obstruction EF more than 70% Diagnosed with non ST elevation [place] with elevated troponin.? Status post cardiac catheterization which showed critical coronary artery disease including high-grade left main stenosis extending into the ostium of the circumflex as well as LAD. She was placed on intra-aortic balloon pump due to critical nature of the patient's left main anatomy. She
== END 2024-03-08 16:51 | disposition short-term general hospital (02) | DRG 270 ==
LOC: ANHED 13:27 → ANHIMU 17:17 → ANHICU 03-08 14:12
PROVIDERS: Internal Medicine Cardiovascular Disease; Preventive Medicine Aerospace Medicine; Specialist; Admitting Provider Internal Medicine; Emergency Provider Nurse Practitioner Family; PCP Internal Medicine; Visit Provider Internal Medicine
PROC: 4A023N7 Measurement of Cardiac Sampling and Pressure, Left Heart, Percutaneous Approach (ICD-10-PCS; CPT 93452; principal; 2024-03-08 11:30)
PROC: 5A02210 Assistance with Cardiac Output using Balloon Pump, Continuous (ICD-10-PCS; 2024-03-08 11:30)
DX: I21.4 Non-ST elevation (NSTEMI) myocardial infarction (principal); K85.80 Other acute pancreatitis without necrosis or infection; I25.10 Atherosclerotic heart disease of native coronary artery without angina pectoris; R55 Syncope and collapse; E11.9 Type 2 diabetes mellitus without complications; E78.5 Hyperlipidemia, unspecified; K74.60 Unspecified cirrhosis of liver; I10 Essential (primary) hypertension; Z87.891 Personal history of nicotine dependence
CPT/HCPCS: 33967; 36415; 70450; 71046; 71275; 74177; 76705; 80053; 80061; 80307; 83690; 83880; 84484; 85025; 85610; 85730; 93005; 93306; 93458; 99285; A9270; C1887; C1894; J0360; J1644; J2250; J3010; J7030; J7040; Q9967

== ENCOUNTER 2024-05-31 11:50 | Inpatient (IN) | payer MEDICARE, SELFPAY ==
[2024-05-31] VITALS (18 sets, daily range): BP systolic 122–167; BP diastolic 49–68; PULSE 69–77; RESP 12–28; TEMP 36.2–36.8; O2SAT 82–100; BMI 35.3
--- NOTE | ~2024-05-31 | XR_ITS ---
Clinical Indication: Weakness PA and lateral views of the chest: Comparison: 03/07/2024 Findings: Right-sided central venous line is in satisfactory position. There is minimal left pleural effusion. Right lung clear. Cardiomediastinal silhouette is stable, status post interval median velasco otomy and probable CABG. Bones and soft tissues are unremarkable. Impression: Minimal left pleural effusion. Support line, as above. Status post interval CABG. Reviewed, dictated and finalized at location M. Impression: Minimal left pleural effusion. Support line, as above. Status post interval CABG.
[2024-05-31 13:42] LABS: Basophils Absolute Auto 0.1 K/mm3 (0.0-0.1); Basophils Percent Auto 0.6 % (0.2-1.2); Eosinophils Absolute Auto 0.4 K/mm3 (0-0.3); Eosinophils Percent Auto 4.9 % (0-4.4); Hematocrit 21.4 % (37.0-47.0); Immature Granulocyte Absolute 0.05 K/mm3 (0.00-0.031); Immature Granulocyte Percent A 0.6 % (0-0.5); Mean Corpuscular HGB Conc 30.4 g/dl (32-36); Mean Corpuscular Hemoglobin 32.3 pg (26-34); Mean Corpuscular Volume 106.5 fl (80-100); Mean Platelet Volume 11.5 fl (7.4-10.4); Monocytes Absolute Auto 0.8 K/mm3 (0.1-0.6); Monocytes Percent Auto 9.4 % (2.6-8.5); Neutrophils Absolute Auto 5.5 K/mm3 (1.3-6.7); Neutrophils Percent Auto 65.5 % (45.5-73.1); Platelet Count Result 198 k/mm3 (150-375); Red Blood Count 2.01 M/mm3 (4.2-5.4); Red Cell Distribution Width 19.3 % (11.5-14.5); White Blood Count 8.4 K/mm3 (4.5-10.0)
[2024-05-31 13:50] LABS: Hemoglobin 6.5 g/dL (12.0-15.0)
[2024-05-31 13:54] LABS: Alanine Aminotransferase 74 U/L (6-35); Albumin Level 2.9 g/dL (3.5-5.1); Alkaline Phosphatase 154 U/L (38-126); Anion Gap 10 mmol/L (4-12); Aspartate Amino Transferase 125 U/L (14-36); Bilirubin,Total 0.4 mg/dL (0.2-1.3); Blood Urea Nitrogen 28 mg/dL (7-17); Calcium 7.9 mg/dL (8.4-10.2); Carbon Dioxide 27 mmol/L (22-30); Chloride 97 mmol/L (98-107); Estimated CRCL calculation 10 ml/min; Estimated Glomerular Filt Rate 10; Glucose 109 mg/dL (65-110); Potassium 3.5 mmol/L (3.4-5.0); Sodium 134 mmol/L (137-145)
[2024-05-31 13:55] LABS: INR 2.3; Partial Thromboplastin Time 32.9 Seconds (22.3-36.8); Prothrombin Time 26.2 Seconds (11.1-14.7)
[2024-05-31 14:02] LABS: Platelet Estimate Adequate (Adequate); Schistocytes None Seen
--- NOTE | 2024-05-31 14:02 | ED.GENADULT ---
HPI - General Adult General Chief complaint: Recheck/Abnormal Lab/Rx Stated complaint: low hgb Time Seen by Provider: 05/31/24 13:22 History of Present Illness HPI narrative: Patient is a 73-year-old female who presents ER with low hemoglobin. Patient was discharged 4 days ago from [facility] after being hospitalized for sepsis. She had a vein graft harvest site that was infected. She was treated with cefepime. She developed kidney failure and has been placed on dialysis. She is supposed to get dialysis today but her hemoglobin was too low so she was sent to the ER. All review of her discharge summary shows that she did have some concern for GI bleeding previously that improved with a PPI. Patient been seen at [place] in March for GI bleed and received 3 units of blood. Patient reports darker colored stools. No diarrhea. No hematemesis. Related Data Home Medications Medication Instructions Recorded Confirmed acetaminophen 325 mg tablet 650 mg PO Q4H PRN Pain (Scale 05/27/24 05/31/24 Score 1-3) apixaban 5 mg tablet 5 mg PO BID 05/27/24 05/31/24 aspirin 81 mg chewable tablet 81 mg PO DAILY 05/27/24 05/31/24 carvedilol 6.25 mg tablet 6.25 mg PO BIDWM 05/27/24 05/31/24 cholecalciferol (vitamin D3) 125 125 mcg PO DAILY 05/27/24 05/31/24 mcg (5,000 unit) capsule insulin glargine 100 unit/mL (3 13 unit subcut HS 05/27/24 05/31/24 mL) subcutaneous pen insulin lispro 100 unit/mL 1 - 5 sliding scale dose subcut 05/27/24 05/31/24 subcutaneous pen TIDWM lidocaine 4 % topical cream 2.5 g topical TID PRN Pain, Mild 05/27/24 05/31/24 pantoprazole 40 mg tablet,delayed 40 mg PO BID 05/27/24 05/31/24 release polyethylene glycol 3350 17 gram 17 g PO DAILY 05/27/24 05/31/24 oral powder packet rosuvastatin 10 mg tablet 10 mg PO HS 05/27/24 05/31/24 Allergies Allergy/AdvReac Type Severity Reaction Status Date / Time atorvastatin Allergy Unknown Verified 05/31/24 18:14 Review of Systems Review of Systems: All systems reviewed & are unremarkable except as noted in HPI and below Constitutional: Constitutional: Reports no additional constitutional complaints ENT: Reports system reviewed and no additional complaints, except as documented Cardiovascular: Cardiovascular: Reports no additional cardiovascular complaints Respiratory: Respiratory: Reports no additional respiratory complaints Musculoskeletal: Musculoskeletal: Reports no additional musculoskeletal complaints PMFSH Past Medical History Medical History (Updated 05/31/24 @ 18:45 by Mohan Anderson MD) Chronic anemia Chronic anticoagulation Coronary artery disease End-stage renal disease on hemodialysis Insulin dependent type 2 diabetes mellitus Obstructive sleep apnea Paroxysmal atrial fibrillation Surgical History Surgical History History of coronary artery bypass graft (02/2024) Family History Family History Mother Colon cancer Father Acute myocardial infarction Social History Social History (Updated 05/31/24 @ 16:45 by Damaris Cadet PA-C) Social History: Surrogate medical decision maker: Code status: Full code. Smoking packs per day: 1 Smoking cigarettes per day: 20.0 Smoking status: Former smoker Second hand tobacco smoke exposure: Yes Alcohol intake: former Substance use: never Substance use type: does not use Do You Feel Safe in your Home?: Yes Lack of Transportation: No Lack of Food: Never True Current Housing: I Have Housing Concerned About Future Housing: No Difficulty Paying Gas/Electric Bills: No Difficulty Paying for Meds: No Currently Unemployed: No Education: High School Diploma/GED Difficulty w/ Childcare or Family Care: No Spiritual care concerns: No Exam Narrative: GENERAL: Well-appearing, well-nourished, and in no acute distress. HEAD: Normocephalic, atraumatic.
[2024-05-31 14:03] LABS: Anisocytosis 2+; Hypochromasia 2+
[2024-05-31] MEDS: PANTOPRAZOLE SODIUM IV 40 MG VIAL IV PUSH (14:48)
[2024-05-31] MEDS: SODIUM CHLORIDE 0.9% IV 250 ML 30 ML IV CONT (15:30)
[2024-05-31] MEDS: TUBING, BLOOD PLUM PUMP TUBING 1 EACH XX (15:59)
--- NOTE | 2024-05-31 16:42 | PM.IMHP ---
H&P: HPI History of Present Illness Date/Time: 05/31/24 18:00 Chief Complaint: Low hemoglobin. Narrative: This is a 73-year-old female with coronary artery disease status post CABG in February 2024 and recent admission to [place] with septic shock related to infected graft site, renal failure on hemodialysis since that hospitalization, paroxysmal atrial fibrillation on chronic anticoagulation, obstructive sleep apnea, and insulin-dependent diabetes who presented to the emergency department via EMS from [facility] for evaluation after she was found to have a low hemoglobin on morning labs. The patient provides the following history. She was due for hemodialysis this morning but due to her low hemoglobin she was directed to the emergency department. She has not noticed dark stools or bright red blood in her stools however her stool was Hemoccult positive today. She is otherwise feeling okay and denies syncope, near syncope, chest pain, shortness of breath, fatigue, epigastric and abdominal pain, or bloating. She has had some belching. In the ED: Vital signs were stable on arrival. Labs were significant for WBC count of 8.4, hemoglobin 6.5, hematocrit 21.4%, MCV 106.5, INR 2.3, sodium 134, potassium 3.5, BUN 28, creatinine 4.40, AST 125, ALT 74, alkaline phosphatase 154, total protein 6.0, albumin 2.9. Chest x-ray showed minimal left pleural effusion. She is being admitted in this setting for blood transfusion and GI consultation. Review of Systems Review of Systems: 12 systems were reviewed and are negative except for as per HPI. [facility] Past Medical History Medical History Chronic anemia Chronic anticoagulation Coronary artery disease End-stage renal disease on hemodialysis Insulin dependent type 2 diabetes mellitus Obstructive sleep apnea Paroxysmal atrial fibrillation Surgical History Surgical History History of coronary artery bypass graft (02/2024) Family History Family History Mother Colon cancer Father Acute myocardial infarction Social History Social History (Updated 05/31/24 @ 21:10 by Damaris Cadet PA-C) Social History: Surrogate medical decision maker: Jose Toth, fatou. Code status: Full code. Smoking packs per day: 1 Smoking cigarettes per day: 20.0 Smoking status: Former smoker Second hand tobacco smoke exposure: Yes Alcohol intake: former Substance use: never Substance use type: does not use Do You Feel Safe in your Home?: Yes Lack of Transportation: No Lack of Food: Never True Current Housing: I Have Housing Concerned About Future Housing: No Difficulty Paying Gas/Electric Bills: No Difficulty Paying for Meds: No Currently Unemployed: No Education: High School Diploma/GED Difficulty w/ Childcare or Family Care: No Spiritual care concerns: No Meds Home Medications and Allergies Home Medications Medication Instructions Recorded Confirmed Type acetaminophen 325 mg tablet 650 mg PO Q4H PRN Pain (Scale 05/27/24 05/31/24 History Score 1-3) apixaban 5 mg tablet 5 mg PO BID 05/27/24 05/31/24 History aspirin 81 mg chewable tablet 81 mg PO DAILY 05/27/24 05/31/24 History carvedilol 6.25 mg tablet 6.25 mg PO BIDWM 05/27/24 05/31/24 History cholecalciferol (vitamin D3) 125 125 mcg PO DAILY 05/27/24 05/31/24 History mcg (5,000 unit) capsule insulin glargine 100 unit/mL (3 13 unit subcut HS 05/27/24 05/31/24 History mL) subcutaneous pen insulin lispro 100 unit/mL 1 - 5 sliding scale dose subcut 05/27/24 05/31/24 History subcutaneous pen TIDWM lidocaine 4 % topical cream 2.5 g topical TID PRN Pain, Mild 05/27/24 05/31/24 History pantoprazole 40 mg tablet,delayed 40 mg PO BID 05/27/24 05/31/24 History release polyethylene glycol 3350 17 gram 17 g PO DAILY 05/27/24 05/31/24 Hist
--- NOTE | 2024-05-31 17:25 | P.CONNP_ITS ---
Assessment and Plan Assessment and plan (1) Acute renal failure on dialysis: Code(s): N17.9 - Acute kidney failure, unspecified; Z99.2 - Dependence on renal dialysis Status: Acute Assessment and Plan: * creatinine at 1.0mg/dl prior to previous acute hospitalization at [facility] * GERALDINE/ARF secondary to ATN from septic shock * plan HD tomorrow and continue dialysis 3X/week while hospitalized * follow electrolytes, volume status, and clearance * follow urine output and repeat labs to assess for renal recovery (2) Anemia: Code(s): D64.9 - Anemia, unspecified Status: Chronic Assessment and Plan: * acute on chronic * had been running in the 7ish range * likely due to a combination of GERALDINE/ARF, dialysis, and acute illness * has known history of liver cirrhosis which could be playing a role as well * acute drop in H/H noted today * noted to be guaiac positive in the ER * GI consultation * anticoagulation on hold * PRBC transfusion per protocol * ELENA with dialysis * follow trend of H/H (3) CAD (coronary artery disease): Code(s): I25.10 - Atherosclerotic heart disease of [place] coronary artery without angina pectoris Status: Chronic Assessment and Plan: * known history * s/p 2-vessel CABC in February 2024 * continue medical management hg (4) Afib: Code(s): I48.91 - Unspecified atrial fibrillation Status: Chronic Assessment and Plan: * rate control strategy * on anticoagulation - currently on hold (5) Diabetes: Qualifiers: Diabetes mellitus complication status: without complication Diabetes mellitus equipment operator intermodal yard insulin use: without mcfp use Diabetes mellitus type: type 2 Qualified Code(s): E11.9 - Type 2 diabetes mellitus without complications Code(s): E11.9 - Type 2 diabetes mellitus without complications Status: Chronic Assessment and Plan: * follow accu-cheks * glycemic control per hospitalists I will continue follow patient with you while he she remains hospitalized and make further recommendations as deemed necessary. Thank you for allowing me to participate in the care of this patient. History of Present Illness Reason for Consult Consult date: 05/31/24 Reason for consult: acute renal failure (requiring renal replacement therapy/dialysis) Chief Complaint Chief complaint: Occult GI Bleed/ ESRD on Dialysis/Anemia History of Present Illness Narrative: PLEASE SEE MY CONSULT NOTE FROM [facility] on 05/29/24 The patient is a 73-year-old female with a past medical history as outlined below who was transferred from [facility] to [facility] Emergency Room for further evaluation of severe anemia. The patient was just recently transferred to [facility] from [facility] after a lengthy hospitalization therefore septic shock with resultant acute kidney injury/acute renal failure requiring initiation of renal replacement therapy/dialysis. She had morning labs done earlier today which demonstrated a hemoglobin of 5.8 which was a significant drop from her baseline hemoglobins of around 7 during the latter part of her hospitalization at [facility] and on admission to [facility]. Given her significant decline in her H&H, she was transferred to the emergency room for further assessment. Workup and evaluation emergency room demonstrated the patient to be hemodynamically stable and in no apparent distress. Repeat labs were done which demonstrated a white blood
--- NOTE | 2024-05-31 17:25 | PM.CNNEP ---
Assessment and Plan Assessment and plan (1) Acute renal failure on dialysis: Code(s): N17.9 - Acute kidney failure, unspecified; Z99.2 - Dependence on renal dialysis Status: Acute Assessment and Plan: creatinine at 1.0mg/dl prior to previous acute hospitalization at [facility] GERALDINE/ARF secondary to ATN from septic shock plan HD tomorrow and continue dialysis 3X/week while hospitalized follow electrolytes, volume status, and clearance follow urine output and repeat labs to assess for renal recovery (2) Anemia: Code(s): D64.9 - Anemia, unspecified Status: Chronic Assessment and Plan: acute on chronic had been running in the 7ish range likely due to a combination of GERALDINE/ARF, dialysis, and acute illness has known history of liver cirrhosis which could be playing a role as well acute drop in H/H noted today noted to be guaiac positive in the ER GI consultation anticoagulation on hold PRBC transfusion per protocol ELENA with dialysis follow trend of H/H (3) CAD (coronary artery disease): Code(s): I25.10 - Atherosclerotic heart disease of [place] coronary artery without angina pectoris Status: Chronic Assessment and Plan: known history s/p 2-vessel CABC in February 2024 continue medical management hg (4) Afib: Code(s): I48.91 - Unspecified atrial fibrillation Status: Chronic Assessment and Plan: rate control strategy on anticoagulation - currently on hold (5) Diabetes: Qualifiers: Diabetes mellitus complication status: without complication 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 Thank you for allowing me to participate in the care of this patient. History of Present Illness Reason for Consult Consult date: 05/31/24 Reason for consult: acute renal failure (requiring renal replacement therapy/dialysis) Chief Complaint Chief complaint: Occult GI Bleed/ ESRD on Dialysis/Anemia History of Present Illness Narrative: PLEASE SEE MY CONSULT NOTE FROM [facility] on 05/29/24 The patient is a 73-year-old female with a past medical history as outlined below who was transferred from [facility] to [facility] Emergency Room for further evaluation of severe anemia. The patient was just recently transferred to [facility] from [facility] after a lengthy hospitalization therefore septic shock with resultant acute kidney injury/acute renal failure requiring initiation of renal replacement therapy/dialysis. She had morning labs done earlier today which demonstrated a hemoglobin of 5.8 which was a significant drop from her baseline hemoglobins of around 7 during the latter part of her hospitalization at [facility] and on admission to [facility]. Given her significant decline in her H&H, she was transferred to the emergency room for further assessment. Workup and evaluation emergency room demonstrated the patient to be hemodynamically stable and in no apparent distress. Repeat labs were done which demonstrated a white blood cell count of 8.4, hemoglobin 6.5, hematocrit 21.4 in association with an INR of 2.3. Her chemistry labs were consistent with her known diagnosis of acute kidney injury/acute renal failure requiring dialysis with no critical electrolyte abnormalities with a BUN of 28 and a creatinine of 4.4. Her chest x-ray showed a minimal left pleural effusion but no other significant findings. On further q
--- NOTE | 2024-05-31 18:09 | ADMGEN ---
This patient, Erlinda Toth, was admitted to [facility] Surg Room 322-02. Patient/family oriented to hospital policies and general routines including ID bracelet, bed and alarms, visiting hours, pain management, procedures, bathroom and other care routines, personal items, smoking policy, room service/diet, and visiting hours. Information on how to activate the Rapid Response Team has been discussed. Patient/Family are encouraged to report perceived risks to care and to ask questions if they do not understand what they are told or what they should do.
[2024-05-31 21:34] LABS: Glucose Point of Care 136 mg/dl (65-105)
[2024-05-31] MEDS: INSULIN GLARGINE (*BKC) 100 UNITS/ML 13 UNITS SUB-Q (21:41)
[2024-05-31] MEDS: PANTOPRAZOLE 40 MG TABLET PO (21:41)
[2024-05-31] MEDS: carvediloL 6.25 MG TABLET PO (21:41)
[2024-06-01] VITALS (26 sets, daily range): BP systolic 108–173; BP diastolic 49–89; PULSE 57–76; RESP 16–20; TEMP 35.9–37; O2SAT 94–100; BMI 35.7
[2024-06-01 06:53] LABS: Hematocrit 27.7 % (37.0-47.0); Hemoglobin 8.8 g/dL (12.0-15.0); Mean Corpuscular HGB Conc 31.8 g/dl (32-36); Mean Corpuscular Hemoglobin 31.8 pg (26-34); Mean Platelet Volume 11.3 fl (7.4-10.4); Platelet Count Result 169 k/mm3 (150-375); Red Blood Count 2.77 M/mm3 (4.2-5.4); Red Cell Distribution Width 19.2 % (11.5-14.5); White Blood Count 6.8 K/mm3 (4.5-10.0)
[2024-06-01 06:57] LABS: INR 1.9; Prothrombin Time 22.1 Seconds (11.1-14.7)
[2024-06-01 06:59] LABS: Alanine Aminotransferase 59 U/L (6-35); Albumin Level 2.7 g/dL (3.5-5.1); Alkaline Phosphatase 134 U/L (38-126); Anion Gap 8 mmol/L (4-12); Aspartate Amino Transferase 99 U/L (14-36); Bilirubin,Total 0.7 mg/dL (0.2-1.3); Blood Urea Nitrogen 33 mg/dL (7-17); Calcium 7.8 mg/dL (8.4-10.2); Carbon Dioxide 27 mmol/L (22-30); Chloride 99 mmol/L (98-107); Estimated CRCL calculation 9 ml/min; Estimated Glomerular Filt Rate 9; Glucose 83 mg/dL (65-110); Magnesium 1.6 mg/dL (1.6-2.3); Potassium 3.5 mmol/L (3.4-5.0); Sodium 134 mmol/L (137-145)
[2024-06-01 07:05] LABS: Glucose Point of Care 88 mg/dl (65-105)
[2024-06-01 07:16] LABS: Phosphorus 3.8 mg/dL (2.5-4.5)
--- NOTE | 2024-06-01 07:49 | PM.IMPN ---
Progress Note: A&P Assessment and Plan (1) Acute on chronic anemia: Code(s): D64.9 - Anemia, unspecified Status: Acute Assessment and Plan: Patient has chronic anemia but lower on admission than baseline likely due to patients positive hemoccult and chronic anticoagulation. - H/H 6.5/21.4 received 2 unit pRBC on admission. Labs responded appropriately, now H/H 8.8/27.7 on am labs. - Hold Eliquis 5 mg BID at this time - Continue to monitor with daily labs. Transfuse is Hgb <7. (2) Occult GI bleeding: Code(s): R19.5 - Other fecal abnormalities Status: Acute Assessment and Plan: H/H 6.5/21.4 received 2 unit pRBC on admission. Labs responded appropriately, now H/H 8.8/27.7 on am labs. Hemoccult positive. Patient started on eliquis in February 2024 following her CABG. - Pantoprazole BID - Diet: clear liquid - DVT Px: SCDs - Avoid anti-coagulations: Eliquis 5 mg BID on hold - Monitor serum electrolytes, CBC, hemoglobin/hematocrit q.8 hours. If hemoglobin drops below 7 transfuse packed red blood cells - Monitor for bloody bowel movements,chest pain,SOB or dizziness/lightheadedness - GI consulted Plan for EGD tomorrow Per GI last colonoscopy January 2024 was normal (3) End-stage renal disease on hemodialysis: Code(s): N18.6 - End stage renal disease; Z99.2 - Dependence on renal dialysis Status: Acute Assessment and Plan: Patient receives dialysis every Mon/Wed/Fri. - Nephrology consulted - Follow electrolytes, volume status, and clearance - Follow vital signs, I/O (4) Elevated LFTs: Code(s): R79.89 - Other specified abnormal findings of blood chemistry Status: Acute Assessment and Plan: Tot bili 0.4, AST 125, ALT 74, Alk phos 154 on admission. - Downtrending on am labs - Continue to monitor - Hep B panel negative (5) Paroxysmal atrial fibrillation: Code(s): I48.0 - Paroxysmal atrial fibrillation Status: Acute Assessment and Plan: Chronic. - Current home medication: Eliquis 5 mg BID - Continue to hold anticoagulation - SCDs for DVT ppx (6) Insulin dependent type 2 diabetes mellitus: Code(s): E11.9 - Type 2 diabetes mellitus without complications; Z79.4 - terminal supervisor (current) use of insulin Status: Acute Assessment and Plan: - hypoglycemia protocol - POC blood glucose ACHS - home medication - glargine 13 units, lispro sliding scale TIDWM - correct regimen ordered - continue home regimen (7) Obstructive sleep apnea: Code(s): G47.33 - Obstructive sleep apnea (adult) (pediatric) Status: Acute Time Spent With Patient Time with patient: 25 - 35 minutes Subjective Date/time seen: 06/01/24 07:49 Interval history: 73-year-old female with coronary artery disease status post CABG in February 2024 and recent admission to [place] with septic shock related to infected graft site, renal failure on hemodialysis since that hospitalization, paroxysmal atrial fibrillation on chronic anticoagulation, obstructive sleep apnea, and insulin-dependent diabetes who presented to the emergency department via EMS from [facility] for evaluation after she was found to have a low hemoglobin on morning labs requiring blood transfusion. Patient is pleasant lying comfortably in bed receiving dialysis. Her H/H responded appropriately to the pRBC transfusion. She states she was asymptomatic prior to this admission, denying shortness of breath, increased fatigue, chest pain. She notes that a few people at the facility noticed she was paler than usual. She was evaluated by GI today who plans on taking her for an EGD tomorrow. Per GI patients last colonoscopy was January 2024 and was normal. Patient denies hematochezia and melena. Discuss code status with patient and she wishes to be a DNR. Per patient, son is currently working on the paperwork at this time. Review of Systems Review of Systems: All systems reviewed & are unr
[2024-06-01 07:54] LABS: Hepatitis B Surface Antigen Negative (Negative)
[2024-06-01 08:12] LABS: Hepatitis B Surface Anti Res Negative
--- NOTE | 2024-06-01 08:41 | P.CONGI_ITS ---
I, Gatito Klein MD, have provided a substantive portion of the care of this patient and discussed the patient with my Nurse Practitioner. I have reviewed any new relevant radiographic and laboratory results including medications. I agree with her documentation as noted below.?I personally performed the medical decision making and much of the history and exam for this encounter. briefly, she had complication after CABG with sepsis and hypotension, also developed ATN and still on dialysis. She is here with worsening anemia but no overt gib, FOBT +. Last colonoscopy January 2024. Also on blood thinner because heart condition. Plan is to do EGD tomorrow, probably anemia multifactorial from renal disease, blood thinner, etc. Assessment and Plan Assessment and plan (1) Occult GI bleeding: Code(s): R19.5 - Other fecal abnormalities Status: Acute (2) Acute on chronic anemia: Code(s): D64.9 - Anemia, unspecified Status: Acute (3) Elevated LFTs: Code(s): R79.89 - Other specified abnormal findings of blood chemistry Status: Acute (4) End-stage renal disease on hemodialysis: Code(s): N18.6 - End stage renal disease; Z99.2 - Dependence on renal dialysis Status: Acute (5) Family history of colon cancer: Code(s): Z80.0 - Family history of malignant neoplasm of digestive organs Status: Acute (6) Change in bowel habits: Code(s): R19.4 - Change in bowel habit Status: Acute (7) Diarrhea: Qualifiers: Diarrhea type: unspecified type Qualified Code(s): R19.7 - Diarrhea, unspecified Code(s): R19.7 - Diarrhea, unspecified Status: Acute Plan 1. Suspect upper GI bleed/Anemia: Hgb on admission at 6.5 requiring 2 units PRBC transfusion yesterday. Last colonoscopy January 2024 normal. No prior EGD. patient has been on Protonix 40 mg b.i.d. since her CABG in February. Post CABG the patient was also started on Eliquis and aspirin 81 mg daily. Currently denies any abdominal pain, nausea, vomiting, hematemesis, swallowing difficulty, early satiety. She states that her appetite has been slowly improving over the past few months. * Hold Eliquis * Plan for EGD tomorrow * NPO after midnight * Continue PPI * okay to advance diet today * primary care team to continue monitoring H&H and transfuse as needed to keep Hgb >7 2. Change in bowel habits/Diarrhea /family history colon cancer: Per patient's last colonoscopy in January of 2024 was normal. patient's mother was diagnosed with colon cancer in her 80s. Per patient stools have recently been loose, like soft serve , sometimes urgent. This morning had 1 bowel movement, loose but not liquid. patient had been on multiple rounds of antibiotics for septic shock following post CABG graft site infection. * Will send stool studies to evaluate for infectious etiology. * Monitor bowel movements 3. Elevated LFTs: On admission 05/28/2024 alkaline phosphatase 149, AST 178, and ALT 79. LFTs trending down but still elevated showing total bilirubin 0.7, AST 99, ALT 59, alkaline phosphatase 134. CTA in February noted liver cirrhosis but ultrasound on 03/08/2024 showed normal appearing liver. Unclear if alkaline phosphatase may be elevated secondary to end-stage renal disease versus other hepatic etiology. * Will check fibrosis panel and if LFTs remain elevated we will consider liver workup 4. Acute renal failure on hemodialysis (labs show Cr 4.80, GFR 9): * Patient to receive hemodialysis today, time TBD * Primary care team and nephrology to manage Thank you ve
--- NOTE | 2024-06-01 08:41 | WPDGICN ---
Assessment and Plan Assessment and plan (1) Occult GI bleeding: Code(s): R19.5 - Other fecal abnormalities Status: Acute (2) Acute on chronic anemia: Code(s): D64.9 - Anemia, unspecified Status: Acute (3) Elevated LFTs: Code(s): R79.89 - Other specified abnormal findings of blood chemistry Status: Acute (4) End-stage renal disease on hemodialysis: Code(s): N18.6 - End stage renal disease; Z99.2 - Dependence on renal dialysis Status: Acute (5) Family history of colon cancer: Code(s): Z80.0 - Family history of malignant neoplasm of digestive organs Status: Acute (6) Change in bowel habits: Code(s): R19.4 - Change in bowel habit Status: Acute (7) Diarrhea: Qualifiers: Diarrhea type: unspecified type Qualified Code(s): R19.7 - Diarrhea, unspecified Code(s): R19.7 - Diarrhea, unspecified Status: Acute Plan 1. Suspect upper GI bleed/Anemia: Hgb on admission at 6.5 requiring 2 units PRBC transfusion yesterday. Last colonoscopy January 2024 normal. No prior EGD. patient has been on Protonix 40 mg b.i.d. since her CABG in February. Post CABG the patient was also started on Eliquis and aspirin 81 mg daily. Currently denies any abdominal pain, nausea, vomiting, hematemesis, swallowing difficulty, early satiety. She states that her appetite has been slowly improving over the past few months. Hold Eliquis Plan for EGD tomorrow NPO after midnight Continue PPI okay to advance diet today primary care team to continue monitoring H&H and transfuse as needed to keep Hgb >7 2. Change in bowel habits/Diarrhea /family history colon cancer: Per patient's last colonoscopy in January of 2024 was normal. patient's mother was diagnosed with colon cancer in her 80s. Per patient stools have recently been loose, like soft serve , sometimes urgent. This morning had 1 bowel movement, loose but not liquid. patient had been on multiple rounds of antibiotics for septic shock following post CABG graft site infection. Will send stool studies to evaluate for infectious etiology. Monitor bowel movements 3. Elevated LFTs: On admission 05/28/2024 alkaline phosphatase 149, AST 178, and ALT 79. LFTs trending down but still elevated showing total bilirubin 0.7, AST 99, ALT 59, alkaline phosphatase 134. CTA in February noted liver cirrhosis but ultrasound on 03/08/2024 showed normal appearing liver. Unclear if alkaline phosphatase may be elevated secondary to end-stage renal disease versus other hepatic etiology. Will check fibrosis panel and if LFTs remain elevated we will consider liver workup 4. Acute renal failure on hemodialysis (labs show Cr 4.80, GFR 9): Patient to receive hemodialysis today, time TBD Primary care team and nephrology to manage Thank you very much for allowing me to share in the care of this very nice patient. This report may have been done utilizing a voice recognition system. Attempts have been made to correct errors. However, there may be uncorrected grammatical, spelling, and recognition errors present. GI Consult Note Consult date/time: 06/01/24 08:41 Reason for consult: Occult GI bleed HPI: This is a 73 year old female with a past medical surgical history of CABG in February 2024, recent admission to [place] with septic shock related to infected graft site, renal failure on hemodialysis since that hospitalization, paroxysmal atrial fibrillation on chronic anticoagulation, obstructive sleep apnea, insulin-dependent diabetes, and family history of colon cancer in her mother at age 80s who presented to the ER 06/01/2024 with complaints of melena. GI consulted for occult GI bleed. Patient received 2 units PRBC's since admission for Hgb of 6.5 on admission. Denies abdominal pain, states it gurgles a lot and makes a lot of noise but no specific pain. Denies nausea or vomiting. Reports occasional abdominal bloating. Meghana
[2024-06-01] MEDS: carvediloL 6.25 MG TABLET PO ×2 (08:42→20:39)
[2024-06-01] MEDS: CHOLECALCIFEROL 5,000 UNITS TABLET 5000 UNITS PO (08:42)
[2024-06-01] MEDS: PANTOPRAZOLE 40 MG TABLET PO ×2 (08:43→16:29)
[2024-06-01] MEDS: ASPIRIN 81 MG CHEWABLE TABLET PO (08:43)
[2024-06-01] MEDS: PANTOPRAZOLE SODIUM IV 40 MG VIAL IV PUSH ×2 (08:43→16:29)
[2024-06-01] MEDS: EPOETIN ALFA 20,000 UNITS/ML VIAL 20000 UNITS IV PUSH (11:51)
[2024-06-01] MEDS: HEPARIN SODIUM 1,000 UNITS/ML VIAL 5000 UNITS (11:52)
[2024-06-01] MEDS: SODIUM CHLORIDE 0.9% IV 1,000 ML 999 ML IV CONT (11:53)
--- NOTE | 2024-06-01 12:38 | P.PNNP_ITS ---
Progress Note: A&P Assessment and Plan (1) Acute renal failure on dialysis: Code(s): N17.9 - Acute kidney failure, unspecified; Z99.2 - Dependence on renal dialysis Status: Acute Assessment and Plan: * creatinine at 1.0mg/dl prior to previous acute hospitalization at [facility] * GERALDINE/ARF secondary to ATN from septic shock * HD today and continue T/T/S schedule for now (transition back to M/W/F schedule on presumed discharge back to [facility]) * follow electrolytes, volume status, and clearance * follow urine output and repeat labs to assess for renal recovery (2) Anemia: Code(s): D64.9 - Anemia, unspecified Status: Chronic Assessment and Plan: * acute on chronic * had been running in the 7ish range * likely due to a combination of GERALDINE/ARF, dialysis, and acute illness * has known history of liver cirrhosis which could be playing a role as well * acute drop in H/H noted on admission * noted to be guaiac positive in the ER * GI recommendations noted - plan EGD tomorrow * anticoagulation on hold * PRBC transfusion per protocol * ELENA with dialysis * follow trend of H/H (3) CAD (coronary artery disease): Code(s): I25.10 - Atherosclerotic heart disease of [place] coronary artery without angina pectoris Status: Chronic Assessment and Plan: * known history * s/p 2-vessel CABC in February 2024 * continue medical management hg (4) Afib: Code(s): I48.91 - Unspecified atrial fibrillation Status: Chronic Assessment and Plan: * rate control strategy * was on anticoagulation - currently on hold (5) Diabetes: Qualifiers: Diabetes mellitus complication status: without complication Diabetes mellitus medical terminologist insulin use: without skilled nursing use Diabetes mellitus type: type 2 Qualified Code(s): E11.9 - Type 2 diabetes mellitus without complications Code(s): E11.9 - Type 2 diabetes mellitus without complications Status: Chronic Assessment and Plan: * follow accu-cheks * glycemic control per hospitalists Will continue to follow. Subjective Date/time seen: 06/01/24 10:55 Interval history: Follow-up for acute kidney injury/acute renal failure requiring renal replacement therapy/dialysis. Tolerating dialysis treatment at the time of my visit (seen on HD at 10:45AM); appropriate incrementation in H/H following PRBC transfusion; no apparent distress noted currently; no issues/events overnight or earlier this morning. Exam Narrative: General: elderly but WD/WN female in NAD Heart: normal S1 and S2; no rub Lungs: clear anteriorly Abdomen: soft, nontender, nondistended, positive bowel sounds Extremities: no cyanosis or clubbing; 1+ edema Skin: warm and dry; LLE wound noted Objective Data Vital Signs Vital Signs: Vital Signs Temp Pulse Resp BP Pulse Ox O2 Del Method FiO2 06/01/24 10:09 98.4 F 57 L 16 134/74 96 06/01/24 10:09 96 06/01/24 08:43 Room Air 06/01/24 08:43 74 05/31/24 21:15 97.4 F L 72 16 139/56 L 95 06/01/24 04:00 69 06/01/24 05:15 96.8 F L 68 16 129/57 L 94 06/01/24 00:00 71 05/31/24 20:00 73 05/31/24 20:00 95 Room Air 05/31/24 21:15 97.4 F L 72 16 139/56 L 95 05/31/24 19:07 97.2 F L 74 18 135/52 L 98
--- NOTE | 2024-06-01 12:38 | PM.PNNEP ---
Progress Note: A&P Assessment and Plan (1) Acute renal failure on dialysis: Code(s): N17.9 - Acute kidney failure, unspecified; Z99.2 - Dependence on renal dialysis Status: Acute Assessment and Plan: creatinine at 1.0mg/dl prior to previous acute hospitalization at [facility] GERALDINE/ARF secondary to ATN from septic shock HD today and continue T/T/S schedule for now (transition back to M/W/F schedule on presumed discharge back to [facility]) follow electrolytes, volume status, and clearance follow urine output and repeat labs to assess for renal recovery (2) Anemia: Code(s): D64.9 - Anemia, unspecified Status: Chronic Assessment and Plan: acute on chronic had been running in the 7ish range likely due to a combination of GERALDINE/ARF, dialysis, and acute illness has known history of liver cirrhosis which could be playing a role as well acute drop in H/H noted on admission noted to be guaiac positive in the ER GI recommendations noted - plan EGD tomorrow anticoagulation on hold PRBC transfusion per protocol ELENA with dialysis follow trend of H/H (3) CAD (coronary artery disease): Code(s): I25.10 - Atherosclerotic heart disease of [place] coronary artery without angina pectoris Status: Chronic Assessment and Plan: known history s/p 2-vessel CABC in February 2024 continue medical management hg (4) Afib: Code(s): I48.91 - Unspecified atrial fibrillation Status: Chronic Assessment and Plan: rate control strategy was on anticoagulation - currently on hold (5) Diabetes: Qualifiers: Diabetes mellitus complication status: without complication Diabetes mellitus snf insulin use: without extermination inspector use Diabetes mellitus type: type 2 Qualified Code(s): E11.9 - Type 2 diabetes mellitus without complications Code(s): E11.9 - Type 2 diabetes mellitus without complications Status: Chronic Assessment and Plan: follow accu-cheks glycemic control per hospitalists Will continue to follow. Subjective Date/time seen: 06/01/24 10:55 Interval history: Follow-up for acute kidney injury/acute renal failure requiring renal replacement therapy/dialysis. Tolerating dialysis treatment at the time of my visit (seen on HD at 10:45AM); appropriate incrementation in H/H following PRBC transfusion; no apparent distress noted currently; no issues/events overnight or earlier this morning. Exam Narrative: General: elderly but WD/WN female in NAD Heart: normal S1 and S2; no rub Lungs: clear anteriorly Abdomen: soft, nontender, nondistended, positive bowel sounds Extremities: no cyanosis or clubbing; 1+ edema Skin: warm and dry; LLE wound noted Objective Data Vital Signs Vital Signs: Vital Signs Temp Pulse Resp BP Pulse Ox O2 Del Method FiO2 06/01/24 10:09 98.4 F 57 L 16 134/74 96 06/01/24 10:09 96 06/01/24 08:43 Room Air 06/01/24 08:43 74 05/31/24 21:15 97.4 F L 72 16 139/56 L 95 06/01/24 04:00 69 06/01/24 05:15 96.8 F L 68 16 129/57 L 94 06/01/24 00:00 71 05/31/24 20:00 73 05/31/24 20:00 95 Room Air 05/31/24 21:15 97.4 F L 72 16 139/56 L 95 05/31/24 19:07 97.2 F L 74 18 135/52 L 98 05/31/24 19:06 97.2 F L 73 18 135/52 L 97 05/31/24 18:51 97.8 F 72 18 167/65 H 99 05/31/24 17:58 97.8 F 76 16 167/65 H 97 05/31/24 17:00 74 20 144/60 H 96 05/31/24 16:30 69 13 138/57 L 90 05/31/24 16:49 98.1 F 74 17 144/60 H 96 05/31/24 16:15 72 28 H 153/60 H 97 05/31/24 15:45 74 14 150/53 H 97 05/31/24 15:30 75 17 153/58 H 98 05/31/24 15:01 77 19 150/68 H 99 05/31/24 15:49 98.0 F 76 14 122/61 96 05/31/24 15:34 98.3 F 74 17 153/58 H 100 05/31/24 14:49 72 12 143/61 H 82 L 05/31/24 13:46 73 18 137/49 L Intake/Output
[2024-06-01 14:03] LABS: Glucose Point of Care 85 mg/dl (65-105)
[2024-06-01 16:33] LABS: Glucose Point of Care 196 mg/dl (65-105)
[2024-06-01 20:12] LABS: Glucose Point of Care 118 mg/dl (65-105)
[2024-06-01] MEDS: ROSUVASTATIN 10 MG TABLET PO (20:39)
[2024-06-02] VITALS (15 sets, daily range): BP systolic 116–153; BP diastolic 45–63; PULSE 69–76; RESP 16–20; TEMP 35.9–36.8; O2SAT 94–99
[2024-06-02 07:51] LABS: Glucose Point of Care 111 mg/dl (65-105)
[2024-06-02] MEDS: carvediloL 6.25 MG TABLET PO ×2 (08:51→20:50)
[2024-06-02] MEDS: PANTOPRAZOLE SODIUM IV 40 MG VIAL IV PUSH (08:51)
--- NOTE | 2024-06-02 09:46 | PC.NURSE ---
pt npo. gi lab stated to this nurse to hold morning meds besides coreg. coreg was given, but rest of morning meds will be given late.
--- NOTE | 2024-06-02 10:43 | PM.IMPN ---
Progress Note: A&P Assessment and Plan (1) Acute on chronic anemia: Code(s): D64.9 - Anemia, unspecified Status: Acute Assessment and Plan: Patient has chronic anemia but lower on admission than baseline likely due to patients positive hemoccult and chronic anticoagulation. - H/H 6.5/21.4 received 2 unit pRBC on admission. Labs responded appropriately, now H/H 8.8/27.7 on am labs. - Hold Eliquis 5 mg BID at this time - Continue to monitor with daily labs. Transfuse is Hgb <7. -06/02- reviewed and stable (2) Occult GI bleeding: Code(s): R19.5 - Other fecal abnormalities Status: Acute Assessment and Plan: H/H 6.5/21.4 received 2 unit pRBC on admission. Labs responded appropriately, now H/H 8.8/27.7 on am labs. Hemoccult positive. Patient started on eliquis in February 2024 following her CABG. - Pantoprazole BID - Diet: clear liquid - DVT Px: SCDs - Avoid anti-coagulations: Eliquis 5 mg BID on hold - Monitor serum electrolytes, CBC, hemoglobin/hematocrit q.8 hours. If hemoglobin drops below 7 transfuse packed red blood cells - Monitor for bloody bowel movements,chest pain,SOB or dizziness/lightheadedness - GI consulted Plan for EGD tomorrow Per GI last colonoscopy January 2024 was normal (3) End-stage renal disease on hemodialysis: Code(s): N18.6 - End stage renal disease; Z99.2 - Dependence on renal dialysis Status: Acute Assessment and Plan: Patient receives dialysis every Mon/Wed/Fri. - Nephrology consulted - Follow electrolytes, volume status, and clearance - Follow vital signs, I/O (4) Elevated LFTs: Code(s): R79.89 - Other specified abnormal findings of blood chemistry Status: Acute Assessment and Plan: Tot bili 0.4, AST 125, ALT 74, Alk phos 154 on admission. - Downtrending on am labs - Continue to monitor - Hep B panel negative (5) Paroxysmal atrial fibrillation: Code(s): I48.0 - Paroxysmal atrial fibrillation Status: Acute Assessment and Plan: Chronic. - Current home medication: Eliquis 5 mg BID - Continue to hold anticoagulation - SCDs for DVT ppx (6) Insulin dependent type 2 diabetes mellitus: Code(s): E11.9 - Type 2 diabetes mellitus without complications; Z79.4 - manager intermediate (current) use of insulin Status: Acute Assessment and Plan: - hypoglycemia protocol - POC blood glucose ACHS - home medication - glargine 13 units, lispro sliding scale TIDWM - correct regimen ordered - continue home regimen (7) Obstructive sleep apnea: Code(s): G47.33 - Obstructive sleep apnea (adult) (pediatric) Status: Acute Time Spent With Patient Time with patient: 25 - 35 minutes Subjective Date/time seen: 06/02/24 10:43 Interval history: 73-year-old female with coronary artery disease status post CABG in February 2024 and recent admission to [facility] with septic shock related to infected graft site, renal failure on hemodialysis since that hospitalization, paroxysmal atrial fibrillation on chronic anticoagulation, obstructive sleep apnea, and insulin-dependent diabetes who presented to the emergency department via EMS from [facility] for evaluation after she was found to have a low hemoglobin on morning labs requiring blood transfusion. Patient is pleasant lying comfortably in bed receiving dialysis. Her H/H responded appropriately to the pRBC transfusion. She states she was asymptomatic prior to this admission, denying shortness of breath, increased fatigue, chest pain. She notes that a few people at the facility noticed she was paler than usual. She was evaluated by GI today who plans on taking her for an EGD tomorrow. Per GI patients last colonoscopy was January 2024 and was normal. Patient denies hematochezia and melena. Discuss code status with patient and she wishes to be a DNR. Per patient, son is currently working on the paperwork at this time. 06/02-pt is seen and evaluated. EGD today. vo
--- NOTE | 2024-06-02 12:01 | PM.PNNEP ---
Progress Note: A&P Assessment and Plan (1) Acute renal failure on dialysis: Code(s): N17.9 - Acute kidney failure, unspecified; Z99.2 - Dependence on renal dialysis Status: Acute Assessment and Plan: creatinine at 1.0mg/dl prior to previous acute hospitalization at [facility] GERALDINE/ARF secondary to ATN from septic shock HD tomorrow and continue T/T/S schedule for now (transition back to M/W/F schedule on presumed discharge back to [facility]) follow electrolytes, volume status, and clearance follow urine output and repeat labs to assess for renal recovery (2) Anemia: Code(s): D64.9 - Anemia, unspecified Status: Chronic Assessment and Plan: acute on chronic had been running in the 7ish range likely due to a combination of GERALDINE/ARF, dialysis, and acute illness has known history of liver cirrhosis which could be playing a role as well acute drop in H/H noted on admission noted to be guaiac positive in the ER GI recommendations noted - plan EGD today anticoagulation on hold PRBC transfusion per protocol ELENA with dialysis follow trend of H/H (3) CAD (coronary artery disease): Code(s): I25.10 - Atherosclerotic heart disease of [place] coronary artery without angina pectoris Status: Chronic Assessment and Plan: known history s/p 2-vessel CABC in February 2024 continue medical management hg (4) Afib: Code(s): I48.91 - Unspecified atrial fibrillation Status: Chronic Assessment and Plan: rate control strategy was on anticoagulation - currently on hold (5) Diabetes: Qualifiers: Diabetes mellitus complication status: without complication Diabetes mellitus mcc insulin use: without terminal gauger supervisor use Diabetes mellitus type: type 2 Qualified Code(s): E11.9 - Type 2 diabetes mellitus without complications Code(s): E11.9 - Type 2 diabetes mellitus without complications Status: Chronic Assessment and Plan: follow accu-cheks glycemic control per hospitalists Will continue to follow. Subjective Date/time seen: 06/02/24 12:01 Interval history: Follow-up for acute kidney injury/acute renal failure requiring renal replacement therapy/dialysis. Tolerated dialysis treatment yesterday without any issues or problems; noted plans for EGD later today for further assessment of her anemia on admission; H/H remains relatively stable since PRBC transfusion on admission; no acute distress noted. Exam Narrative: General: elderly but WD/WN female in NAD Heart: normal S1 and S2; no rub Lungs: clear anteriorly Abdomen: soft, nontender, nondistended, positive bowel sounds Extremities: no cyanosis or clubbing; 1+ edema Skin: warm and intact; LLE wound noted Objective Data Vital Signs Vital Signs: Vital Signs Temp Pulse Resp BP Pulse Ox O2 Del Method 06/02/24 12:00 98.1 F 74 18 140/52 L 97 06/02/24 08:00 Room Air 06/02/24 08:00 74 06/02/24 08:51 76 06/02/24 04:00 70 06/02/24 06:00 96.7 F L 72 16 122/53 L 94 06/02/24 00:00 71 06/01/24 20:00 73 06/01/24 20:00 Room Air 06/01/24 20:48 96.7 F L 73 16 108/50 L 94 06/01/24 20:39 74 Intake/Output Intake/Output: Intake & Output 05/30/24 05/31/24 06/01/24 06/02/24 23:59 23:59 23:59 23:59 Intake Total 760 438 266 Output Total 2500 1 Balance 760 -2062 265 Meds/Results Medications: Active Medications Generic Name Dose Route Start Last Admin Trade Name Freq PRN Reason Stop Dose Admin Acetaminophen 650 mg 05/31/24 16:27 Acetaminophen 325 Mg Tablet PO Q4H PRN Mild Pain (1-3) or Fever Hydrocodone Bitart/Acetaminophen 1 tab 05/31/24 16:27 Hydrocodone/Acetaminophen (*Crx) 5-325 Mg Tablet PO Q4H PRN Pain Rated 4-6 Aspirin 81 mg 06/01/24 09:00 06/01/24 08:43 Aspirin 81 Mg Chewable Tablet PO 81 mg DAILY EDE Administratio
--- NOTE | 2024-06-02 12:01 | P.PNNP_ITS ---
Progress Note: A&P Assessment and Plan (1) Acute renal failure on dialysis: Code(s): N17.9 - Acute kidney failure, unspecified; Z99.2 - Dependence on renal dialysis Status: Acute Assessment and Plan: * creatinine at 1.0mg/dl prior to previous acute hospitalization at [facility] * GERALDINE/ARF secondary to ATN from septic shock * HD tomorrow and continue T/T/S schedule for now (transition back to M/W/F schedule on presumed discharge back to [facility]) * follow electrolytes, volume status, and clearance * follow urine output and repeat labs to assess for renal recovery (2) Anemia: Code(s): D64.9 - Anemia, unspecified Status: Chronic Assessment and Plan: * acute on chronic * had been running in the 7ish range * likely due to a combination of GERALDINE/ARF, dialysis, and acute illness * has known history of liver cirrhosis which could be playing a role as well * acute drop in H/H noted on admission * noted to be guaiac positive in the ER * GI recommendations noted - plan EGD today * anticoagulation on hold * PRBC transfusion per protocol * ELENA with dialysis * follow trend of H/H (3) CAD (coronary artery disease): Code(s): I25.10 - Atherosclerotic heart disease of [place] coronary artery without angina pectoris Status: Chronic Assessment and Plan: * known history * s/p 2-vessel CABC in February 2024 * continue medical management hg (4) Afib: Code(s): I48.91 - Unspecified atrial fibrillation Status: Chronic Assessment and Plan: * rate control strategy * was on anticoagulation - currently on hold (5) Diabetes: Qualifiers: Diabetes mellitus complication status: without complication Diabetes mellitus watermaster insulin use: without custodial use Diabetes mellitus type: type 2 Qualified Code(s): E11.9 - Type 2 diabetes mellitus without complications Code(s): E11.9 - Type 2 diabetes mellitus without complications Status: Chronic Assessment and Plan: * follow accu-cheks * glycemic control per hospitalists Will continue to follow. Subjective Date/time seen: 06/02/24 12:01 Interval history: Follow-up for acute kidney injury/acute renal failure requiring renal replacement therapy/dialysis. Tolerated dialysis treatment yesterday without any issues or problems; noted plans for EGD later today for further assessment of her anemia on admission; H/H remains relatively stable since PRBC transfusion on admission; no acute distress noted. Exam Narrative: General: elderly but WD/WN female in NAD Heart: normal S1 and S2; no rub Lungs: clear anteriorly Abdomen: soft, nontender, nondistended, positive bowel sounds Extremities: no cyanosis or clubbing; 1+ edema Skin: warm and intact; LLE wound noted Objective Data Vital Signs Vital Signs: Vital Signs Temp Pulse Resp BP Pulse Ox O2 Del Method 06/02/24 12:00 98.1 F 74 18 140/52 L 97 06/02/24 08:00 Room Air 06/02/24 08:00 74 06/02/24 08:51 76 06/02/24 04:00 70 06/02/24 06:00 96.7 F L 72 16 122/53 L 94 06/02/24 00:00 71 06/01/24 20:00 73 06/01/24 20:00 Room Air 06/01/24 20:48 96.7 F L 73 16 108/50 L 94 06/01/24 20:39 74 Intake/Output Intake/Output:
[2024-06-02 12:11] LABS: Glucose Point of Care 106 mg/dl (65-105)
[2024-06-02 15:09] LABS: Glucose Point of Care 104 mg/dl (65-105)
--- NOTE | 2024-06-02 15:18 | WPDANESEPPF ---
Anes - Initial Pre Proc Eval Procedure: Operation Date: 06/02/24 16:00 Proposed Procedures p Esophagogastroduodenoscopy - Gatito Klein MD Date/Time: 06/02/24 15:18 Surgeon: Elizabeth Holbrook PA-C Pre Op Diagnosis: Occult GI Bleed/ ESRD on Dialysis/Anemia Patient Data Age: 73 Gender: F Height: 1.52 m Weight: 87.6 kg Last Vital Signs Temp 98.1 F 06/02/24 14:00 Pulse 74 06/02/24 14:00 Resp 18 06/02/24 14:00 BP 140/52 L 06/02/24 14:00 Pulse Ox 97 06/02/24 14:00 O2 Del Method Room Air 06/02/24 08:00 FiO2 96 06/01/24 10:09 Allergies Allergy/AdvReac Type Severity Reaction Status Date / Time atorvastatin Allergy Unknown Verified 06/02/24 15:10 Home Medications Medication Instructions Recorded Confirmed Type acetaminophen 325 mg tablet 650 mg PO Q4H PRN Pain (Scale 05/27/24 05/31/24 History Score 1-3) apixaban 5 mg tablet 5 mg PO BID 05/27/24 05/31/24 History aspirin 81 mg chewable tablet 81 mg PO DAILY 05/27/24 05/31/24 History carvedilol 6.25 mg tablet 6.25 mg PO BIDWM 05/27/24 05/31/24 History cholecalciferol (vitamin D3) 125 125 mcg PO DAILY 05/27/24 05/31/24 History mcg (5,000 unit) capsule insulin glargine 100 unit/mL (3 13 unit subcut HS 05/27/24 05/31/24 History mL) subcutaneous pen insulin lispro 100 unit/mL 1 - 5 sliding scale dose subcut 05/27/24 05/31/24 History subcutaneous pen TIDWM lidocaine 4 % topical cream 2.5 g topical TID PRN Pain, Mild 05/27/24 05/31/24 History pantoprazole 40 mg tablet,delayed 40 mg PO BID 05/27/24 05/31/24 History release polyethylene glycol 3350 17 gram 17 g PO DAILY 05/27/24 05/31/24 History oral powder packet rosuvastatin 10 mg tablet 10 mg PO HS 05/27/24 05/31/24 History Laboratory Tests 06/01/24 06/01/24 06/02/24 16:28 20:08 07:48 POC Capillary Glucose 196 H mg/dl 118 H mg/dl 111 H mg/dl (65-105) (65-105) (65-105) 06/02/24 06/02/24 11:50 15:07 POC Capillary Glucose 106 H mg/dl 104 mg/dl (65-105) (65-105) Patient hx anesthesia problems: none Family hx anesthesia problems: none Results Review: All pre-operative results and documents have been reviewed as part of the pre-operative evaluation. [facility] Past Medical History Medical History Chronic anemia Chronic anticoagulation Coronary artery disease End-stage renal disease on hemodialysis Insulin dependent type 2 diabetes mellitus Obstructive sleep apnea Paroxysmal atrial fibrillation Surgical History Surgical History History of coronary artery bypass graft (02/2024) Family History Family History Mother Colon cancer Father Acute myocardial infarction Social History Social History (Updated 05/31/24 @ 21:10 by Damaris Cadet PA-C) Social History: Surrogate medical decision maker: Jose Toth, son. Code status: Full code. Smoking packs per day: 1 Smoking cigarettes per day: 20.0 Smoking status: Former smoker Second hand tobacco smoke exposure: Yes Alcohol intake: former Substance use: never Substance use type: does not use Do You Feel Safe in your Home?: Yes Lack of Transportation: No Lack of Food: Never True Current Housing: I Have Housing Concerned About Future Housing: No Difficulty Paying Gas/Electric Bills: No Difficulty Paying for Meds: No Currently Unemployed: No Education: High School Diploma/GED Difficulty w/ Childcare or Family Care: No Spiritual care concerns: No Anes - Eval Final PreProcedure Day of Procedure 06/02/24 15:18 Patient weight: obese Heart: regular rate and rhythm Lungs: clear to auscultation Airway: Mallampati scale class II Neurological: alert and oriented Last oral intake: >/= 8 hours ASA classification: IV Emergent: no Anesthetic plan: proce
[2024-06-02] MEDS: SODIUM CHLORIDE 0.9% IV 500 ML 30 ML IV CONT (15:30)
[2024-06-02 16:45] LABS: Glucose Point of Care 103 mg/dl (65-105)
[2024-06-02] MEDS: CHOLECALCIFEROL 5,000 UNITS TABLET 5000 UNITS PO (17:16)
[2024-06-02] MEDS: ASPIRIN 81 MG CHEWABLE TABLET PO (17:16)
[2024-06-02] MEDS: polyethylene glycoL 3350 17 GM POWD.PACK PO (17:16)
[2024-06-02 17:20] LABS: Glucose Point of Care 108 mg/dl (65-105)
[2024-06-02 20:45] LABS: Glucose Point of Care 150 mg/dl (65-105)
[2024-06-02] MEDS: ROSUVASTATIN 10 MG TABLET PO (20:50)
[2024-06-02] MEDS: PANTOPRAZOLE 40 MG TABLET PO (20:50)
[2024-06-03] VITALS (24 sets, daily range): BP systolic 121–165; BP diastolic 49–81; PULSE 65–84; RESP 18; TEMP 35.1–37; O2SAT 96–100
[2024-06-03 02:44] LABS: Hepatitis B Core Ab Total NON-REACTIVE (NON-REACTIVE)
[2024-06-03 06:27] LABS: Basophils Absolute Auto 0.1 K/mm3 (0.0-0.1); Basophils Percent Auto 1.2 % (0.2-1.2); Eosinophils Absolute Auto 0.4 K/mm3 (0-0.3); Eosinophils Percent Auto 6.4 % (0-4.4); Hematocrit 29.1 % (37.0-47.0); Immature Granulocyte Absolute 0.02 K/mm3 (0.00-0.031); Immature Granulocyte Percent A 0.3 % (0-0.5); Lymphocytes Absolute Auto 1.32 K/mm3 (0.9-3.2); Lymphocytes Percent Auto 21.7 % (18.3-44.2); Mean Corpuscular HGB Conc 30.9 g/dl (32-36); Mean Corpuscular Hemoglobin 32.1 pg (26-34); Mean Corpuscular Volume 103.9 fl (80-100); Mean Platelet Volume 11.1 fl (7.4-10.4); Monocytes Absolute Auto 0.8 K/mm3 (0.1-0.6); Monocytes Percent Auto 12.5 % (2.6-8.5); Neutrophils Absolute Auto 3.5 K/mm3 (1.3-6.7); Neutrophils Percent Auto 57.9 % (45.5-73.1); Platelet Count Result 177 k/mm3 (150-375); Red Cell Distribution Width 18.9 % (11.5-14.5); White Blood Count 6.1 K/mm3 (4.5-10.0)
[2024-06-03 06:41] LABS: INR 1.2; Prothrombin Time 16.2 Seconds (11.1-14.7)
[2024-06-03 06:41] LABS: Alanine Aminotransferase 52 U/L (6-35); Albumin Level 2.8 g/dL (3.5-5.1); Alkaline Phosphatase 171 U/L (38-126); Anion Gap 8 mmol/L (4-12); Aspartate Amino Transferase 84 U/L (14-36); Bilirubin,Total 0.8 mg/dL (0.2-1.3); Blood Urea Nitrogen 19 mg/dL (7-17); Calcium 8.1 mg/dL (8.4-10.2); Carbon Dioxide 29 mmol/L (22-30); Chloride 98 mmol/L (98-107); Estimated CRCL calculation 12 ml/min; Estimated Glomerular Filt Rate 11; Glucose 111 mg/dL (65-110); Phosphorus 3.4 mg/dL (2.5-4.5); Potassium 3.5 mmol/L (3.4-5.0); Sodium 135 mmol/L (137-145)
[2024-06-03 07:52] LABS: Glucose Point of Care 112 mg/dl (65-105)
[2024-06-03] MEDS: ASPIRIN 81 MG CHEWABLE TABLET PO (08:25)
[2024-06-03] MEDS: PANTOPRAZOLE 40 MG TABLET PO (08:25)
[2024-06-03] MEDS: polyethylene glycoL 3350 17 GM POWD.PACK PO (08:25)
[2024-06-03] MEDS: CHOLECALCIFEROL 5,000 UNITS TABLET 5000 UNITS PO (08:26)
--- NOTE | 2024-06-03 10:19 | PCOTNOTE ---
Attempted to see pt. for occupational therapy evaluation. Pt. away from room for dialysis, nursing aware. Following.
--- NOTE | 2024-06-03 10:26 | PCPTNOTE ---
Attempted to see pt. for Physical therapy evaluation. Pt. away from room for dialysis. Will follow.
[2024-06-03 11:11] LABS: Toxigenic C. Diff NEGATIVE (NEGATIVE)
--- NOTE | 2024-06-03 11:13 | PM.DS ---
DS: Admitting Diagnosis Discharge Date 06/03 Admitting Diagnosis anemia DS: Discharge Diagnosis Discharge Diagnosis (1) Acute on chronic anemia: Code(s): D64.9 - Anemia, unspecified Status: Acute Assessment and Plan: Patient has chronic anemia but lower on admission than baseline likely due to patients positive hemoccult and chronic anticoagulation. - H/H 6.5/21.4 received 2 unit pRBC on admission. Labs responded appropriately, now H/H 8.8/27.7 on am labs. - Hold Eliquis 5 mg BID at this time - Continue to monitor with daily labs. Transfuse is Hgb <7. -06/02- reviewed and stable (2) Occult GI bleeding: Code(s): R19.5 - Other fecal abnormalities Status: Acute Assessment and Plan: H/H 6.5/21.4 received 2 unit pRBC on admission. Labs responded appropriately, now H/H 8.8/27.7 on am labs. Hemoccult positive. Patient started on eliquis in February 2024 following her CABG. - Pantoprazole BID - Diet: clear liquid - DVT Px: SCDs - Avoid anti-coagulations: Eliquis 5 mg BID on hold - Monitor serum electrolytes, CBC, hemoglobin/hematocrit q.8 hours. If hemoglobin drops below 7 transfuse packed red blood cells - Monitor for bloody bowel movements,chest pain,SOB or dizziness/lightheadedness - GI consulted Plan for EGD tomorrow Per GI last colonoscopy January 2024 was normal (3) End-stage renal disease on hemodialysis: Code(s): N18.6 - End stage renal disease; Z99.2 - Dependence on renal dialysis Status: Acute Assessment and Plan: Patient receives dialysis every Mon/Wed/Fri. - Nephrology consulted - Follow electrolytes, volume status, and clearance - Follow vital signs, I/O (4) Elevated LFTs: Code(s): R79.89 - Other specified abnormal findings of blood chemistry Status: Acute Assessment and Plan: Tot bili 0.4, AST 125, ALT 74, Alk phos 154 on admission. - Downtrending on am labs - Continue to monitor - Hep B panel negative (5) Paroxysmal atrial fibrillation: Code(s): I48.0 - Paroxysmal atrial fibrillation Status: Acute Assessment and Plan: Chronic. - Current home medication: Eliquis 5 mg BID - Continue to hold anticoagulation - SCDs for DVT ppx (6) Insulin dependent type 2 diabetes mellitus: Code(s): E11.9 - Type 2 diabetes mellitus without complications; Z79.4 - roasterman (current) use of insulin Status: Acute Assessment and Plan: - hypoglycemia protocol - POC blood glucose ACHS - home medication - glargine 13 units, lispro sliding scale TIDWM - correct regimen ordered - continue home regimen (7) Obstructive sleep apnea: Code(s): G47.33 - Obstructive sleep apnea (adult) (pediatric) Status: Acute DS: Summary Hospital Course Hospital Course: Interval history: 73-year-old female with coronary artery disease status post CABG in February 2024 and recent admission to [facility] with septic shock related to infected graft site, renal failure on hemodialysis since that hospitalization, paroxysmal atrial fibrillation on chronic anticoagulation, obstructive sleep apnea, and insulin-dependent diabetes who presented to the emergency department via EMS from [facility] for evaluation after she was found to have a low hemoglobin on morning labs requiring blood transfusion. Patient is pleasant lying comfortably in bed receiving dialysis. Her H/H responded appropriately to the pRBC transfusion. She states she was asymptomatic prior to this admission, denying shortness of breath, increased fatigue, chest pain. She notes that a few people at the facility noticed she was paler than usual. She was evaluated by GI today who plans on taking her for an EGD tomorrow. Per GI patients last colonoscopy was January 2024 and was normal. Patient denies hematochezia and melena. Discuss code status with patient and she wishes to be a DNR. Per patient, son is currently working on the paperwork at this time. 06/02-pt is seen and ev
[2024-06-03] MEDS: EPOETIN ALFA-EPBX 10,000 UNITS/ML VIAL 10000 UNITS IV PUSH (11:30)
[2024-06-03 11:42] LABS: Glucose Point of Care 105 mg/dl (65-105)
--- NOTE | 2024-06-03 11:51 | PCNFU ---
Nutrition Follow-Up Complete: Inadequate energy intake related to clear liquid diet as evidenced by diet orders Goal:Diet advanced and tolerated PO intake 50% or greater continue with same goals Pt current nutrition is Diabetic Nutrition recommendation: continue with current plan of care, encourage intake Last recorded weight is 78 kg. Bowel Motility: +BM 06/03 Labs Reviewed: Hgb:9, HCT:29.1, Alb:2.8, NA:135, GFR:11, BUN:19, Cr:3.9 Meds Noted: novolog/lantus, zofran, protonix Skin: no skin issues noted Additional Notes: Diet advanced to diabetic, intake varied at this time 10-75%. Encourage po intake. Monitor diet order, tolerance, intake, wt, labs. Follow up in 5 days.
--- NOTE | 2024-06-03 12:04 | PM.PNNEP ---
Progress Note: A&P Assessment and Plan (1) Acute renal failure on dialysis: Code(s): N17.9 - Acute kidney failure, unspecified; Z99.2 - Dependence on renal dialysis Status: Acute Assessment and Plan: creatinine at 1.0mg/dl prior to previous acute hospitalization at [facility] GERALDINE/ARF secondary to ATN from septic shock HD todayand continue T/T/S schedule for now (transition back to M/W/F schedule on presumed discharge back to [facility]) follow electrolytes, volume status, and clearance follow urine output and repeat labs to assess for renal recovery (2) Anemia: Code(s): D64.9 - Anemia, unspecified Status: Chronic Assessment and Plan: acute on chronic had been running in the 7ish range likely due to a combination of GERALDINE/ARF, dialysis, and acute illness has known history of liver cirrhosis which could be playing a role as well acute drop in H/H noted on admission noted to be guaiac positive in the ER GI recommendations noted s/p EGD: findings of gastritis and duodenal polp anticoagulation on hold PRBC transfusion per protocol ELENA with dialysis follow trend of H/H (3) CAD (coronary artery disease): Code(s): I25.10 - Atherosclerotic heart disease of [place] coronary artery without angina pectoris Status: Chronic Assessment and Plan: known history s/p 2-vessel CABC in February 2024 continue medical management hg (4) Afib: Code(s): I48.91 - Unspecified atrial fibrillation Status: Chronic Assessment and Plan: rate control strategy was on anticoagulation - currently on hold (5) Diabetes: Qualifiers: Diabetes mellitus complication status: without complication Diabetes mellitus fci insulin use: without fci use Diabetes mellitus type: type 2 Qualified Code(s): E11.9 - Type 2 diabetes mellitus without complications Code(s): E11.9 - Type 2 diabetes mellitus without complications Status: Chronic Assessment and Plan: follow accu-cheks glycemic control per hospitalists Will continue to follow. Subjective Date/time seen: 06/03/24 12:04 Interval history: Follow-up for acute kidney injury/acute renal failure requiring renal replacement therapy/dialysis. Tolerating dialysis treatment at the time of my visit (seen on HD at 11:55AM); s/p EGD with results/finding noted; H/H remains relatively stable; no apparent distress voiced; no other issues/events overnight or earlier this morning; noted plans for possible discharge back to [facility] later today. Exam Narrative: General: elderly but WD/WN female in NAD Heart: normal S1 and S2; no rub Lungs: clear anteriorly Abdomen: soft, nontender, nondistended, positive bowel sounds Extremities: no cyanosis or clubbing; 1+ edema Skin: no rash or nodules; LLE wound noted Objective Data Vital Signs Vital Signs: Vital Signs Temp Pulse Resp BP Pulse Ox O2 Del Method 06/03/24 12:00 84 136/81 06/03/24 11:45 75 153/64 H 06/03/24 11:30 77 138/61 06/03/24 11:15 76 148/50 H 06/03/24 11:00 75 145/64 H 06/03/24 10:45 75 133/62 06/03/24 10:30 76 154/67 H 06/03/24 10:15 77 143/77 H 06/03/24 10:00 76 152/70 H 06/03/24 09:45 80 133/57 L 06/03/24 09:30 74 144/65 H 06/03/24 08:00 Room Air 06/03/24 09:26 75 141/59 H 06/03/24 09:14 98.4 F 77 18 121/63 06/03/24 08:00 73 06/03/24 06:00 96.8 F L 73 18 150/60 H 100 06/03/24 04:00 66 06/03/24 00:00 65 06/02/24 20:00 75 06/02/24 20:00 Room Air 06/02/24 21:04 98.3 F 74 16 116/45 L 94 06/02/24 20:50 76 06/02/24 16:00 69 06/02/24 16:46 69 17 153/63 H 96 Room Air 06/02/24 16:36 74 18 128/59 L 99 Room Air 06/02/24 16:26 70 20 123/55 L 99 Room Air 06/02/24 15:21 96.9 F L 73 16 153/57 H 94 Room Air 06/02/24 14:00 98.1 F 7
--- NOTE | 2024-06-03 12:04 | P.PNNP_ITS ---
Progress Note: A&P Assessment and Plan (1) Acute renal failure on dialysis: Code(s): N17.9 - Acute kidney failure, unspecified; Z99.2 - Dependence on renal dialysis Status: Acute Assessment and Plan: * creatinine at 1.0mg/dl prior to previous acute hospitalization at [facility] * GERALDINE/ARF secondary to ATN from septic shock * HD todayand continue T/T/S schedule for now (transition back to M/W/F schedule on presumed discharge back to [facility]) * follow electrolytes, volume status, and clearance * follow urine output and repeat labs to assess for renal recovery (2) Anemia: Code(s): D64.9 - Anemia, unspecified Status: Chronic Assessment and Plan: * acute on chronic * had been running in the 7ish range * likely due to a combination of GERALDINE/ARF, dialysis, and acute illness * has known history of liver cirrhosis which could be playing a role as well * acute drop in H/H noted on admission * noted to be guaiac positive in the ER * GI recommendations noted * s/p EGD: findings of gastritis and duodenal polp * anticoagulation on hold * PRBC transfusion per protocol * [facility] with dialysis * follow trend of H/H (3) CAD (coronary artery disease): Code(s): I25.10 - Atherosclerotic heart disease of [place] coronary artery without angina pectoris Status: Chronic Assessment and Plan: * known history * s/p 2-vessel CABC in February 2024 * continue medical management hg (4) Afib: Code(s): I48.91 - Unspecified atrial fibrillation Status: Chronic Assessment and Plan: * rate control strategy * was on anticoagulation - currently on hold (5) Diabetes: Qualifiers: Diabetes mellitus complication status: without complication Diabetes mellitus long term care pharmacist insulin use: without group home use Diabetes mellitus type: type 2 Qualified Code(s): E11.9 - Type 2 diabetes mellitus without complications Code(s): E11.9 - Type 2 diabetes mellitus without complications Status: Chronic Assessment and Plan: * follow accu-cheks * glycemic control per hospitalists Will continue to follow. Subjective Date/time seen: 06/03/24 12:04 Interval history: Follow-up for acute kidney injury/acute renal failure requiring renal replacement therapy/dialysis. Tolerating dialysis treatment at the time of my visit (seen on HD at 11:55AM); s/p EGD with results/finding noted; H/H remains relatively stable; no apparent distress voiced; no other issues/events overnight or earlier this morning; noted plans for possible discharge back to [facility] later today. Exam Narrative: General: elderly but WD/WN female in NAD Heart: normal S1 and S2; no rub Lungs: clear anteriorly Abdomen: soft, nontender, nondistended, positive bowel sounds Extremities: no cyanosis or clubbing; 1+ edema Skin: no rash or nodules; LLE wound noted Objective Data Vital Signs Vital Signs: Vital Signs Temp Pulse Resp BP Pulse Ox O2 Del Method 06/03/24 12:00 84 136/81 06/03/24 11:45 75 153/64 H 06/03/24 11:30 77 138/61 06/03/24 11:15 76 148/50 H 06/03/24 11:00 75 145/64 H 06/03/24 10:45 75 133/62 06/03/24 10:30 76 154/67 H 06/03/24 10:15 77 143/77 H 06/03/24 10:00 76 152/70 H 06/03/24 09:45 80 133/57 L 06/03/24 09:30 74
--- NOTE | 2024-06-03 15:48 | WPDGIPROGNO ---
Progress Note: A&P Assessment and Plan (1) Acute on chronic anemia: Code(s): D64.9 - Anemia, unspecified Status: Acute Assessment and Plan: hgb stable after blood transfusion probably multifactorial but also incidental finding of ? large duodenal polyp, ? johan's gland- based on biopsy we will accredited farm manager further recommendation- if adenoma/dysplasia then will refer to either GI at tertiary center for ESD vs surgery (2) Occult GI bleeding: Code(s): R19.5 - Other fecal abnormalities Status: Acute Assessment and Plan: no overt gib (3) End-stage renal disease on hemodialysis: Code(s): N18.6 - End stage renal disease; Z99.2 - Dependence on renal dialysis Status: Acute Assessment and Plan: by nephrology (4) Paroxysmal atrial fibrillation: Code(s): I48.0 - Paroxysmal atrial fibrillation Status: Acute (5) CAD (coronary artery disease): Code(s): I25.10 - Atherosclerotic heart disease of [place] coronary artery without angina pectoris Status: Acute Assessment and Plan: will need to complete rehabilitation at facility ?discharge today to SNF had complicated course after cardiac surgery but getting better (6) S/P CABG x 1: Code(s): Z95.1 - Presence of aortocoronary bypass graft Status: Acute (7) Polyp of duodenum: Code(s): K31.7 - Polyp of stomach and duodenum Status: Acute Subjective Date/time seen: 06/03/24 15:48 Interval history: doing well egd yesterday with incidental finding of what seems to be large duodenal polyp- pending bx Review of Systems Review of Systems: All systems reviewed & are unremarkable except as noted in HPI and below Exam Const: General: comfortable and no acute distress HENMT: Face/Nose/Sinus: Normal nares present Eyes: General: appearance normal, both eyes and all related structures Neck: Neck: no JVD Resp: Auscultation: clear to auscultation bilaterally Cardio: Rate: regular rate Rhythm: regular rhythm GI: Inspection: non-distended GI Palp: Yes Soft to palpation and No Tenderness to palpation present (GI) Auscultation: normal bowel sounds Skin: General skin exam: normal color Neuro: Speech: normal speech Motor exam (neuro): 5/5 motor strength present throughout Extrem: General: normal to inspection Psych: Mental Status: mental status grossly normal Objective Data Vital Signs Vital Signs: Vital Signs - 24 hr 06/02/24 16:26 06/02/24 16:36 06/02/24 16:46 Temperature Pulse Rate 70 74 69 Respiratory Rate 20 18 17 Blood Pressure 123/55 L 128/59 L 153/63 H Pulse Oximetry 99 99 96 Oxygen Delivery Room Air Room Air Room Air 06/02/24 16:00 06/02/24 20:50 06/02/24 21:04 Temperature 98.3 F Pulse Rate 69 76 74 Respiratory Rate 16 Blood Pressure 116/45 L Pulse Oximetry 94 Oxygen Delivery 06/02/24 20:00 06/02/24 20:00 06/03/24 00:00 Temperature Pulse Rate 75 65 Respiratory Rate Blood Pressure Pulse Oximetry Oxygen Delivery Room Air 06/03/24 04:00 06/03/24 06:00 06/03/24 08:00 Temperature 96.8 F L Pulse Rate 66 73 73 Respiratory Rate 18 Blood Pressure 150/60 H Pulse Oximetry 100 Oxygen Delivery 06/03/24 09:14 06/03/24 09:26 06/03/24 08:00 Temperature 98.4 F Pulse Rate 77 75 Respiratory Rate 18 Blood Pressure 121/63 141/59 H Pulse Oximetry Oxygen Delivery Room Air 06/03/24 09:30 06/03/24 09:45 06/03/24 10:00 Temperature Pulse Rate 74 80 76 Respiratory Rate Blood Pressure 144/65 H 133/57 L 152/70 H Pulse Oximetry Oxygen Delivery 06/03/24 10:15 06/03/24 10:30 06/03/24 10:45 Temperature Pulse Rate 77 76 75 Respiratory Rate Blood Pressure 143/77 H 154/67 H 133/62 Pulse Oximetry Oxygen Delivery 06/03/24 11:00 06/03/24 11:15 06/03/24 11:30 Temperature Pulse Rate 75 76 77 Respiratory Rate Blood Pressure 145/64 H 148/50 H 138/61 Pulse Oxime
--- NOTE | 2024-06-03 16:15 | PCPTNOTE ---
On 06/03/24, the student, [Delmis Costa], provided care and completed [facility] documentation on this patient. I have reviewed the student's documentation and agree with the findings.
[2024-06-03 16:55] LABS: Glucose Point of Care 118 mg/dl (65-105)
[2024-06-07 00:13] LABS: ALT 36 U/L (6-29); Alpha-2-Macroglobulin 217 mg/dL (106-279); Apolipoprotein A1 92 mg/dL (101-198); Fibrosis Score 0.48; Fibrosis Stage F2; GGT 143 U/L (3-65); Haptoglobin 295 mg/dL (43-212); Necroinflammat Act Grade A0-A1; Reference ID 5018864; Total Bilirubin 0.4 mg/dL (0.2-1.2)
== END 2024-06-03 18:20 | DRG 811 ==
LOC: ANHED 13:39 → ANH3MEDSUR 17:13
PROVIDERS: Internal Medicine Gastroenterology; Internal Medicine Nephrology; Nurse Practitioner Family; Physician Assistant; Student in an Organized Health Care Education/Training Program; Admitting Provider General Practice; Emergency Provider Emergency Medicine; PCP Internal Medicine; Visit Provider Nurse Practitioner
PROC: 0DJ08ZZ Inspection of Upper Intestinal Tract, Via Natural or Artificial Opening Endoscopic (ICD-10-PCS; CPT 43235; principal; 2024-06-02 16:00)
DX: D50.0 Iron deficiency anemia secondary to blood loss (chronic) (principal); N17.0 Acute kidney failure with tubular necrosis; N18.6 End stage renal disease; K31.7 Polyp of stomach and duodenum; K29.70 Gastritis, unspecified, without bleeding; R19.5 Other fecal abnormalities; E11.22 Type 2 diabetes mellitus with diabetic chronic kidney disease; G47.33 Obstructive sleep apnea (adult) (pediatric); I25.10 Atherosclerotic heart disease of native coronary artery without angina pectoris; I48.0 Paroxysmal atrial fibrillation; R79.89 Other specified abnormal findings of blood chemistry; Z95.1 Presence of aortocoronary bypass graft; Z99.2 Dependence on renal dialysis; Z87.891 Personal history of nicotine dependence; Z95.5 Presence of coronary angioplasty implant and graft; Z79.4 Long term (current) use of insulin; Z79.01 Long term (current) use of anticoagulants; Z79.82 Long term (current) use of aspirin
CPT/HCPCS: 36415; 36430; 71046; 80053; 81596; 82948; 83735; 84100; 85014; 85018; 85025; 85027; 85610; 85730; 86704; 86706; 86850; 86900; 86901; 86923; 87045; 87340; 87427; 87449; 87493; 88305; 96374; 96375; 97161; 99285; A9270; G0257; G0378; J1644; J1815; J2470; J2704; J7030; J7040; J7050; P9016; P9047; Q4081; Q5105